=== PATIENT | female | born 1960 | race Caucasian/White ===

== ENCOUNTER 2022-06-24 23:42 | Observation (INO) | payer MEDICAID, SELFPAY ==
[2022-06-24 22:59] VITALS: BP 174/94; PULSE 61; RESP 18; TEMP 36.7; O2SAT 100
[2022-06-24 23:02] VITALS: BMI 27.7
[2022-06-24 23:33] VITALS: BP 184/100
--- NOTE | 2022-06-24 23:41 | HP.PCM.HOS_ITS ---
HPI - General General Date of Admission: 06/24/22 Date of Service: 06/24/22 Chief Complaint: Transfer for ERCP/biliary colic HPI Narrative INEZ SMITH, is a 62 F who presents as a direct admit from [facility]. Patient has no significant past medical history; has not seen a physician since 2006. She presented to [facility] on 06/20/2022 with sudden onset of epigastric and right upper quadrant pain, associated with nausea and intractable vomiting. Pain was worse after eating. CT of the abdomen and pelvis (06/20/22) showed distended gallbladder, small gallstone suspected region with cystic duct, extensive sigmoid diverticulosis, 2.9 cm duodenal diverticulum. MRCP shows choledocholithiasis with stone seen in the distal common bile duct, stone in the cystic duct concerning pericholecystic free fluid and early acute cholecystitis. She was started on IV Zosyn and kept on a clear liquid diet. General surgery was consulted. Patient was recommended for transfer for ERCP/sphincterectomy evaluation and then cholecystectomy. Patient was also noted to have elevated blood pressure readings without a diagnosis of hypertension. Her labs on 06/24/2022 showed sodium is 141, potassium 3.6, chloride is 110, CO2 28, BUN is 8, creatinine 0.84, glucose 96, calcium 8.4, total bilirubin 0.4, total protein 6.64, albumin 2.7, AST 7 ALT 11, ALP 58. At time of being seen in [facility], patient stated that her pain was fairly controlled. She feels much better than before going into [facility]. Denied any nausea or fever or chills. PFSH Medical History Former smoker Allergy/AdvReac Type Severity Reaction Status Date / Time No Known Allergies Allergy Verified 06/25/22 00:06 Family History (Updated 06/25/22 @ 01:[address] Elisha Hannah MD) Mother Diabetes Father CAD (coronary artery disease) Heart disease Surgical History H/O knee surgery Social History (Updated 06/25/22 @ 01:[address] Elisha Hannah MD) household members: none Smoking Status: Former smoker alcohol intake: never substance use type: does not use ROS ROS Narrative Constitutional: Reports: Malaise, Weakness, Fatigue. Denies: Anorexia, Chills, Fever, Night Sweats, Weight Change Eyes: Denies: Blurred vision, Cataracts, Conjunctivae Inflammation, Pain, Redness, Vision Change HEENT: Denies: Difficulty Hearing, Difficulty Swallowing, Head Aches, Hearing Changes, Sinus Congestion, Sinus Drainage Cardiovascular: Denies: Chest Pain, Orthopnea, Palpitations Respiratory: Denies: Cough, Shortness of breath at rest, Sputum production Gastrointestinal: See HPI Genitourinary: Denies: Dysuria Musculoskeletal: Denies: Joint Pain, Joint stiffness, Joint swelling, Joint Tenderness Skin: Denies: Rash, Wounds Neurological: Denies: Numbness, Tingling, Focal weakness Vital Signs Vital Signs Vital Signs: 06/24/22 22:59 06/24/22 23:24 06/24/22 23:33 Temperature 98.1 F Temperature Source Oral Pulse Rate 61 Respiratory Rate 18 Respiratory Effort Normal Non-Labored Respiratory Depth Normal Respiratory Pattern Normal Blood Pressure 174/94 H Blood Pressure [BP] 184/100 H Blood Pressure Mean 120 Blood Pressure Mean [BP] 128 Blood Pressure Source Monitor Blood Pressure Source [BP] Monitor Blood Pressure Position Semi-Fowlers Blood Pressure Position [BP] Semi-Fowlers Blood Pressure Location Left Arm Blood Pressure Location [BP] Right Arm Pulse Ox 100 Oxygen Delivery Method Room Air Room Air Weight Weight: 76.5 kg Body Mass Index (BMI) 27.7 Physical Exam Narrative Physical exam: General: Alert, Oriented x3, Cooperative, not jaundiced, not pale HEENT: Atraumatic Oral: Moist Mucosa Neck: Supple Lungs: Diminished to auscultation Cardiovascular: HS I+II, regular, no murmurs Abdomen: Bowel Sounds Present, Soft, Non Tender Extremities: No edema Skin: No rashes, No breakdown Neurological: Grossly intact Psych/Mental Status: Appropriate Assessment & Plan Assessment/Plan (1) Choledocholithiasis: (2) Cholecystitis: (3) HTN (hypertension): PLAN: Plan 1. Acute choledocholithiasis/acute early cholecystitis CT abdomen/pelvis on 06/20/22 confirms the above LFTs on 06/24/2022 were unremarkable. Admit to MedSurg, pain control as needed, GI consult for evaluation for ERCP General surgery consult for subsequent cholecystectomy Continue on IV Zosyn, clear liquid diet pending further recommendations from GI 2. Elevated blood pressure without previous diagnosis of hypertension Patient was hypertensive the last few days in [facility] Will start on amlodipine 5 mg p.o. daily, continue to monitor vitals 3. DVT PPx- SCDs, in preparation for procedure Total time spent: 75 minutes of which more > 50% was spent in reviewing patient's chart, laboratory investigations, imaging, taking history and physical examining patient and going over plan of care with patient at the bedside. Charges/Coding Visit Charges Inpatient E&M: 03073 Init Hosp L3
[2022-06-25] VITALS (16 sets, daily range): BP systolic 119–164; BP diastolic 70–110; PULSE 50–73; RESP 14–18; TEMP 36.2–37.2; O2SAT 90–100; BMI 27.7
[2022-06-25] MEDS: 0.9% Saline Lock 10 ML Syringe IV ×2 (00:42→05:22)
[2022-06-25] MEDS: Lactated Ringers 1,000 ML 75 ML IV (00:42)
[2022-06-25] MEDS: amLODIPine 5 MG Tablet PO ×2 (01:09→11:01)
--- NOTE | 2022-06-25 06:00 | EKG12_ITS ---
Test Reason : PRE-OP Blood Pressure : / mmHG Vent. Rate : 054 BPM Atrial Rate : 054 BPM P-R Int : 182 ms QRS Dur : 080 ms QT Int : 426 ms P-R-T Axes : 054 001 032 degrees QTc Int : 403 ms Sinus bradycardia with sinus arrhythmia Septal infarct , age undetermined Abnormal ECG No previous ECGs available Confirmed by YVETTE ALVARENGA, AMANDA ([id number]), online content editor JERALD TERAN ([id number]) on 06/26/2022 9:07:34 AM Referred By: Confirmed By:JOYCE CRAWFORD MD
[2022-06-25 07:12] LABS: Absolute Lymphocyte Count 2.41 X10^3/uL (0.83-4.51); Absolute Neutrophil Count 3.4 X10^3/uL (2.0-7.7); Basophil# 0.06 X10^3/uL; Basophil% 0.9 % (0-1); Eosinophil# 0.22 X10^3/uL; Eosinophils% 3.3 % (0-5); Hemoglobin 13.6 g/dL (12.0-15.0); Lymphocyte # 2.41 X10^3/ul (0.83-4.51); Lymphocyte % 35.8 % (19-41); Mean Corpuscular Hgb 30.6 pg (27.0-32.0); Mean Corpuscular Volume 89.9 fL (81-99); Mean Platelet Vol. 9.2 fl (6.2-12.0); Monocyte% 8.9 % (0-10); NRBC Flagged by Analyzer 0 % (0-5); Neutrophil # 3.43 X10^3/uL (2.7-7.7); Platelet Count 272 K/mm3 (150-450); RBC Distribution Width CV 11.9 % (11.6-14.6); RBC Distribution Width SD 38.9 fl (35.1-43.9); Red Blood Count 4.45 M/mm3 (4.2-5.4); White Blood Count 6.7 K/mm3 (4.4-11.0)
[2022-06-25 07:43] LABS: ALB/GLOB Ratio 0.7 RATIO (0.9-2.4); AST(SGOT) 10 U/L (15-37); Alanine Aminotransfer ALT/SGPT 13 U/L (13-56); Albumin, Serum 2.9 g/dL (3.2-5.0); Alkaline Phosphatase 60 U/L (45-117); Anion Gap 8 (5-15); BUN 6 mg/dL (7-18); BUN/Creat Ratio 8.9 RATIO (10-20); Calcium,Total 8.4 mg/dL (8.5-10.1); Chloride 109 mmol/L (98-107); Creatinine, Serum 0.67 mg/dL (0.55-1.02); EST Glomerular Filtration Rate 95 mL/min (>60); Est Glom Filt Rate - Afr Amer 114 mL/min (>60); Estimated Creatinine Clearance 78.34 ml/min; Globulin 3.9 g/dL (2.2-4.2); Glucose 88 mg/dL (74-106); Potassium 3.6 mmol/L (3.5-5.1); Protein, Total 6.8 g/dL (6.4-8.2); Sodium Level 143 mmol/L (136-145)
--- NOTE | 2022-06-25 10:14 | EX.PCM.CON.S ---
Assessment & Plan Assessment/Plan (1) Cholecystitis: PLAN: This is a 62-year-old female, who is otherwise healthy, who presents as a direct admit from outside hospital with diagnoses of cholecystitis and choledocholithiasis. Patient's symptoms are remarkably improved and her labs with CMP today did not show evidence of a cholestatic pattern. Still, her exam is concerning for persistent cholecystitis. After conversation with patient and gastroenterology, I have recommended proceeding with cholecystectomy with intraoperative cholangiogram. It is my hope in performing the operation first that we may be able to obviate the endoscopy procedure if in fact her common duct stone is passed. Procedure was discussed with patient in detail as well as post procedure restrictions. She is understanding of this information and denied any further questions. Recommend: ? Strict n.p.o. now ? Maintenance IV fluids ? Continue empiric IV antibiotics ? Collect consent for procedure later today HPI Consult Data Date of Consult: 06/25/22 HPI Narrative Reason for Consultation: Cholecystitis with choledocholithiasis HPI Narrative: INEZ SMITH, is a 62 F who presents as direct admit from [facility] with diagnoses of cholecystitis and choledocholithiasis. According to patient she started with abdominal discomfort on 06/19/2022. She reports this initially felt like indigestion but was constant and associated with nausea and vomiting. CT imaging on 06/20/2022 diagnosed cholecystitis and subsequently she went through with MRCP which showed a common duct stone. Given this finding she was transferred here for GI evaluation and possible ERCP. States this was her first such episode of the symptoms. He reports that she is otherwise generally healthy and has a remote smoking history with cessation in 2008 (smoked 24 years by this time). She has noted to have some hypertension with her routine vitals, but denies a history of this diagnosis. She also admits, however, that the last time she saw a doctor was 2006. Patient's only prior surgical history was related to an outpatient knee operation. PFSH Medical History Former smoker Allergy/AdvReac Type Severity Reaction Status Date / Time No Known Allergies Allergy Verified 06/25/22 00:06 Family History (Updated 06/25/22 @ 01:[address] Elisha Hannah MD) Mother Diabetes Father CAD (coronary artery disease) Heart disease Surgical History H/O knee surgery Social History (Updated 06/25/22 @ 01:[address] Elisha Hannah MD) household members: none Smoking Status: Former smoker alcohol intake: never substance use type: does not use ROS Constitutional Constitutional: Denies anorexia or fever(s) Gastrointestinal Gastrointestinal: Reports abdominal pain, nausea and vomiting Integumentary Integumentary: Denies jaundice or rash Physical Exam Const alert and oriented x3 General Appearance: cooperative HEENT normocephalic Eyes conjunctivae normal Eyes Narrative: no icterus Resp normal respiratory effort Effort and Inspection: able to speak in complete sentences GI GI Narrative: Overweight, nondistended, no scars. Soft and tender to palpation in the right upper quadrant with positive Monreal sign. Lab / Micro Data Result Diagrams: 06/25/22 06:33 06/25/22 06:33 Labs: Laboratory Results - last 24 hr 06/25/22 06:33: WBC 6.7, RBC 4.45, Hgb 13.6, Hct 40.0, MCV 89.9, MCH 30.6, MCHC 34.0, RDW Std Deviation 38.9, RDW Coeff of Joleen 11.9, Plt Count 272, MPV 9.2, Immature Gran % (Auto) 0.100, Neut % (Auto) 51.0, Lymph % (Auto) 35.8, [place] % (Auto) 8.9, Eos % (Auto) 3.3, Baso % (Auto) 0.9, Absolute Neuts (auto) 3.4, Absolute Lymphs (auto) 2.41, Nucleated RBC % 0 06/25/22 06:33: Sodium 143, Potassium 3.6, Chloride 109 H, Carbon Dioxide 26.0, Anion Gap 8, BUN 6 L, Creatinine 0.67, Estim Creat Clear Calc 78.34, Est GFR (MDRD) Af Amer 114, Est GFR (MDRD) Non-Af 95, BUN/Creatinine Ratio 8.9 L, Glucose 88, Calcium 8.4 L, Total Bilirubin 0.40, AST 10 L, ALT 13, Alkaline Phosphatase 60, Total Protein 6.8, Albumin 2.9 L, Globulin 3.9, Albumin/Globulin Ratio 0.7 L Charges/Coding Visit Charges Inpatient E&M: 55457 Init Hosp L2
[2022-06-25] MEDS: cloNIDine HCl 0.1 MG Tablet 0.2 MG PO (11:01)
--- NOTE | 2022-06-25 15:10 | CASEMGMT ---
BRIANNE HARPER DC Planning Assessment: Face to Face with patient for initial transition planning/care coordination assessment. BRIANNE HARPER introduced self and role at [facility], pt voices understanding. Pt alert and oriented x4, and agreeable to participating in assessment. Care providers, pharmacy, and demographics verified. Admitting dx: cholecystitis with choledocholelithiasis PCP: None, pt states she has not seen a dr since 2006 and denies any chronic conditions requiring management. Specialists: None Preferred Pharmacy: [facility] for this discharge Insurance: [facility] CP Prescription Benefit: yes Living Will/HPOA: None LNOK: mother Jazmine Beckett Living Arrangements: Pt lives alone in a single story home with 2 steps to the deck and one step to enter the home. 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 List of PCP's from [facility] provided to patient. Pt states she will establish with a PCP upon returning home. Will continue to monitor and assist with DC needs as identified. Rafy Lea RN CM
--- NOTE | 2022-06-25 15:17 | PN.HOSP_ITS ---
Subjective Subjective Patient was seen and examined today, her blood pressure is running a little high today, she states she never goes to the doctors for checkups. I have administered clonidine this morning in addition to her Norvasc that she had scheduled. Patient does not complain of any chest pain or shortness of breath. Objective Data Objective Data Vital Signs: Vital Signs Temp Pulse Resp BP Pulse Ox O2 Del Method 98 F 55 L 16 119/73 95 Room Air 06/25/22 13:49 06/25/22 13:49 06/25/22 13:49 06/25/22 13:49 06/25/22 13:49 06/25/22 13:49 Oxygen Delivery Method Room Air Weight: 76.4 kg Body Mass Index (BMI) 27.7 Intake & Output: Intake and Output for Last 24 Hours 06/23/22 06/24/22 06/25/22 23:59 23:59 23:59 Intake Total 346.25 / 346.25 Output Total 800 / 800 Balance -453.75 / -453.75 Lab / Micro Data Result Diagrams: 06/25/22 06:33 06/25/22 06:33 Labs: Laboratory Results - last 24 hr 06/25/22 06:33: WBC 6.7, RBC 4.45, Hgb 13.6, Hct 40.0, MCV 89.9, MCH 30.6, MCHC 34.0, RDW Std Deviation 38.9, RDW Coeff of Joleen 11.9, Plt Count 272, MPV 9.2, Immature Gran % (Auto) 0.100, Neut % (Auto) 51.0, Lymph % (Auto) 35.8, [place] % (Auto) 8.9, Eos % (Auto) 3.3, Baso % (Auto) 0.9, Absolute Neuts (auto) 3.4, Absolute Lymphs (auto) 2.41, Nucleated RBC % 0 06/25/22 06:33: Sodium 143, Potassium 3.6, Chloride 109 H, Carbon Dioxide 26.0, Anion Gap 8, BUN 6 L, Creatinine 0.67, Estim Creat Clear Calc 78.34, Est GFR (MDRD) Af Amer 114, Est GFR (MDRD) Non-Af 95, BUN/Creatinine Ratio 8.9 L, Glucose 88, Calcium 8.4 L, Total Bilirubin 0.40, AST 10 L, ALT 13, Alkaline Phosphatase 60, Total Protein 6.8, Albumin 2.9 L, Globulin 3.9, Albumin/Globulin Ratio 0.7 L Physical Exam Const alert, oriented x3, no apparent distress, average body habitus and healthy appearing General Appearance: cooperative, well kempt and well developed Orientation / Consciousness: awake, oriented to person, oriented to place and oriented to time HEENT normocephalic, head/scalp atraumatic and moist oral mucous membranes Eyes PERRL, EOMs intact bilaterally and conjunctivae normal Neck supple, no JVD, thyroid normal and no carotid bruits General: trachea midline Resp normal respiratory effort, no retractions, no use of accessory muscles and clear to auscultation bilaterally Auscultation: Negative for rales, rhonchi or wheezes Cardio regular rate, regular rhythm, S1 normal heart sound, S2 normal heart sound, no murmurs, no rub and no gallops GI normal to inspection, nondistended, normoactive bowel sounds, soft to palpation, non-tender and non-distended Extremity no clubbing, cyanosis or edema Skin no rashes or lesions noted General Skin Exam: no breakdown Neuro oriented x3, CN's II-XII intact bilaterally, moves all extremities, no focal motor deficits and no sensory deficits noted Sensorium / Orientation: awake, alert, oriented to person, oriented to place and oriented to time Speech: speech normal Psych affect normal Assessment & Plan Assessment/Plan (1) HTN (hypertension): PLAN: Plan 1. Essential hypertension-patient's blood pressure appears controlled at this time, she appears stable for surgery #2 acute cholecystitis-patient will have surgery performed today. She remains on IV antibiotics Total clinical time spent by myself addressing patient's medical problems, r eviewing all her data, and collaborating with her care team: 35 min Charges/Coding Visit Charges Inpatient E&M: 46023 Subs Hosp L2
--- NOTE | 2022-06-25 16:42 | CON.PCM.GI_ITS ---
HPI Consult Data Date of Consult: 06/25/22 HPI Narrative Reason for Consultation: choledocholithiasis HPI Narrative: INEZ SMITH, is a 62 F who presents as a direct admit from [facility].? Patient has no significant past medical history; has not seen a physician since 2006.? She presented to [facility] on 06/20/2022 with sudden onset of epigastric and right upper quadrant pain, associated with nausea and intractable vomiting.? Pain was worse after eating.CT of the abdomen and pelvis (06/20/22) showed distended gallbladder, small gallstone suspected region with cystic duct, extensive sigmoid diverticulosis, 2.9 cm duodenal diverticulum.? MRCP shows choledocholithiasis with stone seen in the distal common bile duct, stone in the cystic duct concerning pericholecystic free fluid and early acute cholecystitis. She was started on IV Zosyn and kept on a clear liquid diet.? General surgery was consulted.? Patient was recommended for transfer for ERCP/sphincterectomy evaluation and then cholecystectomy.? Patient was also noted to have elevated blood pressure readings without a diagnosis of hypertension. Her labs on 06/24/2022 showed sodium is 141, potassium 3.6, chloride is 110, CO2 28, BUN is 8, creatinine 0.84, glucose 96, calcium 8.4, total bilirubin 0.4, total protein 6.64, albumin 2.7, AST 7 ALT 11, ALP 58. At time of being seen in [facility], patient stated that her pain was fairly controlled.? She has been seen by surgery here and the plan of action is for cholecystectomy with intraoperative cholangiogram because her LFTs have improved and her pain is improved.? PFSH Medical History Former smoker Allergy/AdvReac Type Severity Reaction Status Date / Time No Known Allergies Allergy Verified 06/25/22 00:06 Family History (Updated 06/25/22 @ 01:[address] Elisha Hannah MD) Mother Diabetes Father CAD (coronary artery disease) Heart disease Surgical History H/O knee surgery Social History (Updated 06/25/22 @ 01:[address] Elisha Hannah MD) household members: none Smoking Status: Former smoker alcohol intake: never substance use type: does not use ROS Constitutional Constitutional: Denies anorexia or fever(s) Gastrointestinal Gastrointestinal: Reports abdominal pain, nausea and vomiting Integumentary Integumentary: Denies jaundice or rash Physical Exam Const alert, oriented x3, no apparent distress, average body habitus and healthy appearing General Appearance: cooperative, well kempt and well developed Orientation / Consciousness: awake, oriented to person, oriented to place and oriented to time HEENT normocephalic, head/scalp atraumatic and moist oral mucous membranes Eyes PERRL, EOMs intact bilaterally and conjunctivae normal Neck supple, no JVD, thyroid normal and no carotid bruits General: trachea midline Resp normal respiratory effort, no retractions, no use of accessory muscles and clear to auscultation bilaterally Auscultation: Negative for rales, rhonchi or wheezes Cardio regular rate, regular rhythm, S1 normal heart sound, S2 normal heart sound, no murmurs, no rub and no gallops GI normal to inspection, nondistended, normoactive bowel sounds, soft to palpation, non-tender and non-distended Extremity no clubbing, cyanosis or edema Skin no rashes or lesions noted General Skin Exam: no breakdown Neuro oriented x3, CN's II-XII intact bilaterally, moves all extremities, no focal motor deficits and no sensory deficits noted Sensorium / Orientation: awake, alert, oriented to person, oriented to place and oriented to time Speech: speech normal Psych affect normal Lab / Micro Data Result Diagrams: 06/25/22 06:33 06/25/22 06:33 Labs: Laboratory Results - last 24 hr 06/25/22 06:33: WBC 6.7, RBC 4.45, Hgb 13.6, Hct 40.0, MCV 89.9, MCH 30.6, MCHC 34.0, RDW Std Deviation 38.9, RDW Coeff of Joleen 11.9, Plt Count 272, MPV 9.2, Immature Gran % (Auto) 0.100, Neut % (Auto) 51.0, Lymph % (Auto) 35.8, [place] % (Auto) 8.9, Eos % (Auto) 3.3, Baso % (Auto) 0.9, Absolute Neuts (auto) 3.4, Absolute Lymphs (auto) 2.41, Nucleated RBC % 0 06/25/22 06:33: Sodium 143, Potassium 3.6, Chloride 109 H, Carbon Dioxide 26.0, Anion Gap 8, BUN 6 L, Creatinine 0.67, Estim Creat Clear Calc 78.34, Est GFR (MDRD) Af Amer 114, Est GFR (MDRD) Non-Af 95, BUN/Creatinine Ratio 8.9 L, Glucose 88, Calcium 8.4 L, Total Bilirubin 0.40, AST 10 L, ALT 13, Alkaline Phosphatase 60, Total Protein 6.8, Albumin 2.9 L, Globulin 3.9, Albumin/Globulin Ratio 0.7 L Assessment & Plan Assessment/Plan (1) Choledocholithiasis: PLAN: Patient is doing well at this time. We will see what happens when she undergoes cholecystectomy with intraoperative cholangiogram. Hopefully she will not need to have another procedure to remove distal common bile duct stones. Continue antibiotic therapy. I will continue to follow. Charges/Coding Visit Charges Inpatient E&M: 67190 Init Hosp L2
--- NOTE | 2022-06-25 17:00 | GALL_PTH ---
PATIENT: INEZ SMITH LOC: MS3 U#:[id number] AGE/SX: 62/F ROOM: MO317 RE06/24/[address]: Dr. Rashard Butler, : 1960 BED: 1 DIS: 06/26/2022 SPEC #: [id number] RECD: 06/26/22 10:57 STATUS: ANGEL HAM #: [id number] KEITH: 06/25/22 17:[address]: Bam Fernando DEPT: SURGICAL PATHOLOGY RECD BY: Juma Tran ENTERED: 06/26/22 13:21 SP TYPE: GALLBLADDAbhishek ZARAGOZA DR: MD Dr. Rashard Cabrera, DO No Primary Care Phys Tissues: A - Gallbladder, NOS B - Liver, NOS Procedures: PAS with Diastase (control) Trichrome (control) Special Stain Group II PAS Stain (control) Surgery Specimen Level III Surgery Specimen Level V Retic (control) Iron Stain (control) HEADER OPERATION: Laparoscopic cholecystectomy with IOC PRE-OP DIAGNOSIS: Cholecystitis TISSUE SUBMITTED: A ? Gallbladder, B ? Segment for liver biopsy MICROSCOPIC DIAGNOSIS A. Gallbladder, cholecystectomy: Chronic cholecystitis. B. Liver, biopsy: Fragment of benign hepatic parenchyma. No evidence of inflammation or cirrhosis. See comment. AM:maxine 06/29/2022 COMMENT Trichrome stain does not reveal fibrosis. PASD and PAS stains do not reveal accumulation of abnormal proteins. Reticulin stain reveals normal hepatic parenchymal architecture. Iron stain does not reveal intraparenchymal deposition of iron. All matched controls are appropriate. There is no evidence of malignancy. Case has been reviewed in consultation with Dr. Negro who concurs with the above diagnosis. IDC:SJ MICROSCOPIC DESCRIPTION Sections show liver tissue with thermal artifact throughout. GROSS DESCRIPTION A - Received is one container labeled with the patient's name and designated gallbladder. The specimen consists of a gallbladder measuring 6 cm in length and 3 cm in diameter. The external surface is pink-marshall, smooth and glistening for the most part. Focally it is granular, hemorrhagic and contains cautery artifact. The gallbladder is collapsed and does not contain any bile. No stones are identified in the container or in the gallbladder. The gallbladder wall measures up to 0.3 cm in thickness. Rehab Aide sections from the gallbladder and the cystic duct are submitted in one cassette. B - Received in fixative is one container labeled with the patient's name and designated segment for liver biopsy. The specimen consists of an irregular piece of marshall-brown soft tissue measuring 0.5 x 0.5 x 0.2 cm. The entire specimen is submitted in one cassette. / SJ:rg 06/26/2022 TC:3 CPT: 18351, 77487, 79053 x5
--- NOTE | 2022-06-25 17:31 | NURSING ---
pt taken to surgery
[2022-06-25] MEDS: Lactated Ringers 1,000 ML 15 ML IV (17:48)
--- NOTE | 2022-06-25 19:30 | RAD_ITS ---
STUDY: INTRAOPERATIVE CHOLANGIOGRAM. REASON FOR EXAM: Female, 62 years old. LAP JIMMIE FLUOROSCOPY TIME (if supplied): ( 35 seconds ) minutes/seconds. A cine loop of 194 images were submitted. TECHNIQUE: Intraoperative cholangiography was performed by the surgeon. Imaging was submitted. COMPARISON: None. FINDINGS: The common bile duct is unremarkable. No intraluminal filling defect is seen. There is free flow of contrast into the duodenum. RAD/Cholangiogram/ O R,Initial IMPRESSION: Unremarkable intraoperative glandular. Electronically Signed: Jj Rodriguez MD at 13:01 EST ,
[2022-06-25] MEDS: Bupivacaine 0.5% PF 10 ML VIAL (20:37)
[2022-06-25] MEDS: 0.9% Normal Saline (Pres. free 10 ML Vial (20:37)
--- NOTE | 2022-06-25 20:41 | OP.PCM_ITS ---
Report of Operation Date of Procedure: 06/25/22 Pre-Operative Diagnosis: Cholecystitis with choledocholithiasis seen on MRCP Post-Operative Diagnosis: 1. Cholecystitis 2. No demonstrated evidence of choledocholithiasis on intraoperative cholangiogram 3. Firm white nodule of liver segment #4 Surgery/Procedure Performed:: 1. Laparoscopic cholecystectomy with intraoperative cholangiogram 2. Excisional liver biopsy Description of Surgical Findings:: ? Numerous adhesions between the omentum and the gallbladder ? Whitish nodule (estimated 5 mm in diameter) of segment 4 liver ? Cholangiogram showing a long cystic duct flowing into a common bile duct with free flow of contrast into the duodenum without filling defect. There is also retrograde filling of the common hepatic duct Surgeon: Bam Fernando kitchen steward/stewardess: Elen Ash Type of Anesthesia: General/Supplemental Anesthesiologist: Helene Bey Specimen's removed: 1. Gallbladder 2. Excisional biopsy of liver segment 4 nodule Estimated Blood Loss (mL): 50 Description of Procedure: After proper identification in the preoperative holding area the patient was brought to the operating room where positioned supine on the operating room table. Preoperatively SCDs were placed (antibiotics were administered continuously on the floor). General anesthesia was then induced. Patient's abdomen was prepped and draped in usual sterile fashion. A formal timeout was conducted to confirm both patient and the procedure. Procedure was begun with a supraumbilical incision which was extended deeply down to the level of the fascia. The fascia was elevated and incised, as well as the peritoneum. A finger sweep was performed to ensure there were no underlying adhesions and a 12 mm balloon trocar was inserted. Pneumoperitoneum was established at 15 mmHg. 3 additional trocars were placed in the epigastrium and in the right upper quadrant (3 x 5 mm). Inspection of the peritoneum revealed no inadvertent injury to the viscera below. The gallbladder was visualized with moderate degree of inflammation and partly shrouded with adhesions from the omentum. Additionally I noted a small white nodule on the medial aspect of the liver from the gallbladder fossa. The gallbladder fundus was then grasped and elevated cephalad. Then, using careful blunt dissection and electrocautery the omentum was taken down off the gallbladder surface. With additional dissection the peritoneum was opened and the structures of the hepatocystic triangle were delineated. Once the critical view of safety was obtained, the cystic duct was singly clipped distally and using an Huizar Domenico clamp, a cholangiocatheter was fed into the proximal segment of the cystic duct and clamped into place. Under fluoroscopy a cholangiogram was then obtained showing a long cystic duct flowing into a common bile duct with unobstructed antegrade flow of contrast into the duodenum. There was also retrograde flow through the common hepatic duct into the right and left hepatic ducts. With this normal result, and the cholangiocatheter and clamp were withdrawn and the proximal cystic duct was triply clipped and sharply divided. The same process was used for the cystic artery. The gallbladder was then removed from the gallbladder fossa with the use of electrocautery. As I was approaching the gallbladder fossa encountered a secondary cystic artery feeding a body of the gallbladder which was clipped, more circumferentially dissected and clipped again to secure hemostasis for it was divided distally. Additional selective electrocautery was used to obtain hemostasis in the gallbladder fossa. The gallbladder was stowed in Morison's pouch and I performed a excisional biopsy of the liver nodule by applying energy to laparoscopic abel and incising the liver parenchyma as cautery was applied for hemostasis circumferentially about the nodule until it was amputated free. It was removed from the peritoneum and passed off the operative field for pathologic processing via permanent section. The gallbladder was placed in an Endo Catch bag and removed from the peritoneum. Morison's pouch was irrigated and the effluent was suctioned free of the peritoneum. Hemostasis was again confirmed. Pneumoperitoneum was evacuated and the fascia of the 12 mm port sites was closed with #1Vicryl in a [id number] fashion. The skin of each port site was then closed in subcuticular fashion us ing 4-0 Monocryl. Steri-Strips and bandages were applied as dressings. Patient tolerated the procedure well without any apparent complications. On emergence from their anesthetic the patient was taken to PACU for ongoing recovery. Complications None Admit VTE Documentation VTE Mechan Device Prophylaxis: SCD's
[2022-06-26 00:50] VITALS: BP 123/73; PULSE 55; RESP 16; TEMP 36.3; O2SAT 97
[2022-06-26 03:00] VITALS: BP 109/64; PULSE 58; RESP 16; TEMP 36.3; O2SAT 97
[2022-06-26] MEDS: oxyCODONE 5 MG Tablet PO ×2 (05:26→11:42)
[2022-06-26 06:45] LABS: Absolute Lymphocyte Count 0.96 X10^3/uL (0.83-4.51); Absolute Neutrophil Count 8.6 X10^3/uL (2.0-7.7); Basophil# 0.03 X10^3/uL; Basophil% 0.3 % (0-1); Hematocrit 38.6 % (37-47); Hemoglobin 13.4 g/dL (12.0-15.0); Lymphocyte # 0.96 X10^3/ul (0.83-4.51); Lymphocyte % 9.8 % (19-41); Mean Corp Hgb Conc 34.7 g/dL (32-36); Mean Corpuscular Hgb 30.9 pg (27.0-32.0); Mean Corpuscular Volume 88.9 fL (81-99); Mean Platelet Vol. 9.4 fl (6.2-12.0); Monocyte# 0.16 X10^3/uL; Monocyte% 1.6 % (0-10); NRBC Flagged by Analyzer 0 % (0-5); Neutrophil # 8.57 X10^3/uL (2.7-7.7); Neutrophil % 87.9 % (47-70); Platelet Count 240 K/mm3 (150-450); RBC Distribution Width CV 11.7 % (11.6-14.6); RBC Distribution Width SD 37.4 fl (35.1-43.9); Red Blood Count 4.34 M/mm3 (4.2-5.4); White Blood Count 9.8 K/mm3 (4.4-11.0)
[2022-06-26 07:13] VITALS: O2SAT 96
[2022-06-26 07:17] LABS: ALB/GLOB Ratio 0.7 RATIO (0.9-2.4); AST(SGOT) 34 U/L (15-37); Alanine Aminotransfer ALT/SGPT 31 U/L (13-56); Albumin, Serum 2.7 g/dL (3.2-5.0); Alkaline Phosphatase 62 U/L (45-117); Anion Gap 10 (5-15); BUN 14 mg/dL (7-18); BUN/Creat Ratio 17.5 RATIO (10-20); Calcium,Total 8.4 mg/dL (8.5-10.1); Chloride 106 mmol/L (98-107); EST Glomerular Filtration Rate 77 mL/min (>60); Est Glom Filt Rate - Afr Amer 94 mL/min (>60); Estimated Creatinine Clearance 65.61 ml/min; Globulin 3.9 g/dL (2.2-4.2); Glucose 176 mg/dL (74-106); Potassium 3.9 mmol/L (3.5-5.1); Protein, Total 6.6 g/dL (6.4-8.2); Sodium Level 138 mmol/L (136-145)
[2022-06-26 08:00] VITALS: BP 123/88; PULSE 62; RESP 16; TEMP 36.7; O2SAT 94
[2022-06-26] MEDS: amLODIPine 5 MG Tablet PO (08:26)
--- NOTE | 2022-06-26 09:00 | PN.SURG_ITS ---
Subjective Subjective Patient seen and examined during AM rounds. She is found sitting up in bed and coffee. She reports that she is feeling better. She claims just mild tenderness at her abdominal wall. She states that she is eager for more regular diet. She wishes to know when she may be able to go home. Objective Data Objective Data Vital Signs: Vital Signs Temp Pulse Resp BP Pulse Ox O2 Del Method O2 Flow Rate 98.1 F 62 16 123/88 H 94 Room Air 2 06/26/22 08:00 06/26/22 08:00 06/26/22 08:00 06/26/22 08:00 06/26/22 08:00 06/26/22 08:00 06/26/22 03:00 Oxygen Flow Rate (L/min) 2 Oxygen Delivery Method Room Air Weight: 170 lb 13.732 oz Body Mass Index (BMI) 27.7 Intake & Output: Intake and Output for Last 24 Hours 06/24/22 06/25/22 06/26/22 23:59 23:59 23:59 Intake Total 2646.25 / 2646.25 550 / 550 Output Total 800 / 800 500 / 500 Balance 1846.25 / 1846.25 50 / 50 Lab / Micro Data Result Diagrams: 06/26/22 06:20 06/26/22 06:20 Labs: Laboratory Results - last 24 hr 06/26/22 06:20: WBC 9.8, RBC 4.34, Hgb 13.4, Hct 38.6, MCV 88.9, MCH 30.9, MCHC 34.7, RDW Std Deviation 37.4, RDW Coeff of Joleen 11.7, Plt Count 240, MPV 9.4, Immature Gran % (Auto) 0.400, Neut % (Auto) 87.9 H, Lymph % (Auto) 9.8 L, [place] % (Auto) 1.6, Eos % (Auto) 0.0, Baso % (Auto) 0.3, Absolute Neuts (auto) 8.6 H, Absolute Lymphs (auto) 0.96, Nucleated RBC % 0 06/26/22 06:20: Sodium 138, Potassium 3.9, Chloride 106, Carbon Dioxide 22.0, Anion Gap 10, BUN 14, Creatinine 0.80, Estim Creat Clear Calc 65.61, Est GFR (MDRD) Af Amer 94, Est GFR (MDRD) Non-Af 77, BUN/Creatinine Ratio 17.5, Glucose 176 H, Calcium 8.4 L, Total Bilirubin 0.50, AST 34, ALT 31, Alkaline Phosphatase 62, Total Protein 6.6, Albumin 2.7 L, Globulin 3.9, Albumin/Globulin Ratio 0.7 L Physical Exam Const oriented x3 and no apparent distress GI GI Narrative: Nondistended, operative dressings intact without strikethrough. Abdomen soft and appropriately tender to palpation about port sites. Assessment & Plan Assessment/Plan (1) Cholecystitis: PLAN: This is a 62-year-old female, who is otherwise healthy, who presents as a direct admit from outside hospital with diagnoses of cholecystitis and choledocholithiasis. She was taken to the OR yesterday for laparoscopic cholecystectomy with intraoperative cholangiogram. She was found to have clear evidence of cholecystitis, but cholangiogram was clear?not demonstrating any choledocholithiasis. Intraoperatively I did note a small nodule in segment 4 of the liver so this was excised for pathology as well. This morning patient is doing quite well in her recovery and having minimal discomfort. She is eager for regular diet and discharge. I have transitioned her diet and notified hospitalist service that if she does well with this transition she is good for discharge from a surgical standpoint. I have requested outpatient follow-up in 7 to 10 days and discussed with her postoperative instructions. Charges/Coding Visit Charges Inpatient E&M: 38641 Subs Hosp L2
--- NOTE | 2022-06-26 10:57 | DCINST_ITS ---
Discharge Instructions Diet Discharge Diet: No restrictions Activity Discharge Activity: Return to Normal Activity Weight Bearing Status: Full weight bearing Follow Up Care Test Results: Test results from this visit will be discussed in further detail at your follow- up appointment, if applicable. Discharge Plan Admission Admit Date/Time: 06/24/22 23:42 Primary Reason for Your Visit: acute cholecystitis Attending Provider: Rashard Butler Primary Care Provider: Care Physician,No Primary Consulting Providers: Bam Fernando ; Elisha aHnnah Instructions Additional Instructions / Restrictions: See a primary care physician in 2 to 3 weeks Discharge Orders/Prescriptions Prescriptions: New amlodipine 5 mg Tablet 5 mg PO DAILY Qty: 30 0RF oxycodone 5 mg Tablet 5 - 10 mg PO Q6H PRN PRN (Reason: Pain Score 6-10) 5 Days Qty: 25 0RF Referrals / Follow Up: Bam Fernando MD [Med Staff - Active Staff] - In 1 Week Care Physician,No Primary [Primary Care Provider] - Disposition Disposition (needs filled in before D/C Order can be placed): Home, Self Care
--- NOTE | 2022-06-26 14:25 | PCM.DC.SUM ---
Providers Date of Admission: 06/24/22 Date of Discharge: 06/26/22 Primary Care Physician: Evelin Primary Care Phys Consultations 06/24/22 23:45 Consult: Gastroenterology Routine Consulting Provider: Cindy Berman Reason for Consult: Biliary colic EMERGENT Consult: No Notified: Yes Date Notified: 06/25/22 Time Notified: 05:55 Method of Notification: Text 06/25/22 00:49 Consult: General Surgery Routine Consulting Provider: Bam Fernando Reason for Consult: Cholecystitis EMERGENT Consult: No Notified: Yes Date Notified: 06/25/22 Time Notified: 06:24 Method of Notification: Text Reason For Visit: BILIARY COLIC Diagnosis Discharge Diagnosis (1) Cholecystitis: Status: Acute Code(s): K81.9 - Cholecystitis, unspecified Plan 1. Essential hypertension-new diagnosis--patient's blood pressure appears controlled at this time, she appears stable for surgery #2 acute cholecystitis-patient will have surgery performed today. She remains on IV antibiotics Choledocholithiasis was ruled out Total clinical time spent by myself addressing patient's medical problems, reviewing all her data, and collaborating with her care team: 35 min Medications at Discharge Home Medications amlodipine 5 mg tablet 5 mg PO DAILY #30 tabs 06/26/22 oxycodone 5 mg tablet 5 - 10 mg PO Q6H PRN PRN Pain Score 6-10 5 days #25 tabs 06/26/22 Hospital Course Operations - (Laparoscopic cholecystectomy with intraoperative cholangiogram, excisional liver biopsy) Procedures None Summary of Care Provided Minutes Spent on Discharge: 31 Hospital Course: 62-year-old white female was admitted directly to [place] [address] from [facility] due to right upper quadrant abdominal pain, CT of the abdomen pelvis performed on 06/20/2022 showed a distended gallbladder, small gallstone suspected near the cystic duct, MRCP showed choledocholithiasis with stone seen in the distal common bile duct and a stone in the cystic duct with findings concerning for early acute cholecystitis. Patient was started on IV Zosyn kept on a clear liquid diet, she was seen by general surgery and it was recommended the patient be transferred here for ERCP and sphincterotomy. Patient was also noted to have elevated blood pressure, she had not seen a physician in many years. Patient was admitted to [place] [address], seen by general surgery, she was seen in consultation by gastroenterology, and placed on IV antibiotics and oral blood pressure medications. The plan for the patient would be an interoperative cholangiogram with a cholecystectomy, this was carried out on 06/25/2022, there were no stones present in the common bile duct, liver had an abnormal appearance however and biopsy was taken of the liver. Patient did well after surgery there were no complications, blood pressure was controlled with oral blood pressure medications. On 06/26/2022, patient was seen and examined: On examination she appeared in good health and spirits, she does not appear to be in any distress. Vital signs as documented. Skin warm and dry and without overt rashes. Neck without JVD, thyroid appears normal, trachea is midline, neck is supple. Lungs clear, normal air movement was noted. Heart exam notable for regular rhythm, normal sounds and absence of murmurs, rubs or gallops. Abdomen unremarkable and without evidence of organomegaly, masses, or abdominal aortic enlargement, bowel sounds are present in all 4 quadrants, no abdominal tenderness was noted. Extremities nonedematous, no cyanosis was noted, no clubbing was noted. Neuro: Cranial nerves II through XII are grossly intact, no focal motor deficits were noted, sensation to light touch and pinprick is intact, motor exam 5/5 throughout. Psych: Patient is alert and oriented x3, she does not appear anxious or depressed, she does not appear agitated. Patient was felt to be stable for discharge home on 06/26/2022 in stable condition. Weight / BMI Weight Weight: 77.5 kg Body Mass Index (BMI) 27.7 ABG / Lab / Microbiology Data Result Diagrams: 06/26/22 06:20 06/26/22 06:20 Laboratory: Laboratory Results - last 24 hr 06/26/22 06:20: WBC 9.8, RBC 4.34, Hgb 13.4, Hct 38.6, MCV 88.9, MCH 30.9, MCHC 34.7, RDW Std Deviation 37.4, RDW Coeff of Joleen 11.7, Plt Count 240, MPV 9.4, Immature Gran % (Auto) 0.400, Neut % (Auto) 87.9 H, Lymph % (Auto) 9.8 L, [place] % (Auto) 1.6, Eos % (Auto) 0.0, Baso % (Auto) 0.3, Absolute Neuts (auto) 8.6 H, Absolute Lymphs (auto) 0.96, Nucleated RBC % 0 06/26/22 06:20: Sodium 138, Potassium 3.9, Chloride 106, Carbon Dioxide 22.0, Anion Gap 10, BUN 14, Creatinine 0.80, Estim Creat Clear Calc 65.61, Est GFR (MDRD) Af Amer 94, Est GFR (MDRD) Non-Af 77, BUN/Creatinine Ratio 17.5, Glucose 176 H, Calcium 8.4 L, Total Bilirubin 0.50, AST 34, ALT 31, Alkaline Phosphatase 62, Total Protein 6.6, Albumin 2.7 L, Globulin 3.9, Albumin/Globulin Ratio 0.7 L Radiography Diagnostic Testing: Radiology Impression Cholangiogram 06/25/22 19:30 IMPRESSION: Unremarkable intraoperative glandular. Electronically Signed: Jj Rodriguez MD at 13:01 EST Reading Location ID and State: [address] [place] [address] , Service support , D/C Instructions Discharge Diet: No restrictions Weight Bearing Status: Full weight bearing Meaningful Use Info Meaningful Use Diagnoses (Choose all that apply): None applicable Discharge Plan Admission Admit Date/Time: 06/24/22 23:42 Primary Reason for Your Visit: acute cholecystitis Attending Provider: Rashard Butler Primary Care Provider: Care Physician,No Primary Consulting Providers: Bam Fernando ; Elisha Hannah Instructions Additional Instructions / Restrictions: See a primary care physician in 2 to 3 weeks Discharge Orders/Prescriptions Prescriptions: New amlodipine 5 mg Tablet 5 mg PO DAILY Qty: 30 0RF oxycodone 5 mg Tablet 5 - 10 mg PO Q6H PRN PRN (Reason: Pain Score 6-10) 5 Days Qty: 25 0RF Referrals / Follow Up: Bam Fernando MD [Med Staff - Active Staff] - In 1 Week Care Physician,No Primary [Primary Care Provider] - Disposition Disposition (needs filled in before D/C Order can be placed): Home, Self Care Charges/Coding Visit Charges Inpatient E&M: 79919 Disch Hosp >30min
--- NOTE | 2022-06-26 15:26 | PHA.DC.MC ---
Pharmacy Service has performed discharge medication reconciliation and counseling for this patient. 1. AMLODIPINE 5MG PO DAILY 2. OXYCODONE 5-10MG PO Q6H PRN PAIN 6-10 The patient's discharge medication list was reviewed for discrepancies and discrepancies were resolved. Home Medications amlodipine 5 mg tablet 5 mg PO DAILY #30 tabs 06/26/22 oxycodone 5 mg tablet 5 - 10 mg PO Q6H PRN PRN Pain Score 6-10 5 days #25 tabs 06/26/22 The patient was counseled on the following discharge medications and changes in medications for homegoing were reviewed. The Reason for Use, instructions for use, and potential side effects were reviewed for all new medications. The patient's questions regarding all of their medications were answered. The patient was able to verbally demonstrate an understanding of their discharge medications. Patient counseled by pharmacy care coordinatorMinnie.
[2022-06-26 15:34] VITALS: BP 115/77; PULSE 69; RESP 16; TEMP 36.7; O2SAT 96
== END 2022-06-26 16:50 | disposition home or self-care (01) | DRG 263 ==
PROVIDERS: Surgery; Admitting Provider Internal Medicine; Visit Provider Internal Medicine
PROC: (CPT 47610; principal; 2022-06-25 16:40)
DX: K81.2 Acute cholecystitis with chronic cholecystitis (principal); D13.4 Benign neoplasm of liver; K76.89 Other specified diseases of liver; I10 Essential (primary) hypertension; Z79.899 Other long term (current) drug therapy; Z87.891 Personal history of nicotine dependence
CPT/HCPCS: 47563; 00790; 47379; G0379; 36415; 74300; 76000; 80053; 85025; 88304; 88307; 88313; 93005; 96361; 96365; 96366; 99221; J7050; J7120; A4216; G0378; J2405; J3490

== ENCOUNTER 2025-02-20 04:21 | Inpatient (IN) | payer MEDICARE, MEDICAID, SELFPAY ==
[2025-02-20] VITALS (14 sets, daily range): BP systolic 114–176; BP diastolic 75–117; PULSE 62–100; RESP 14–18; TEMP 36.2–37.7; O2SAT 89–97; BMI 29.0
--- NOTE | 2025-02-20 04:14 | PCM.HP.STD ---
HPI - General General Date of Admission: 02/20/25 Date of Service: 02/20/25 Chief Complaint: Abdominal pain HPI Narrative INEZ SMITH, is a 65 F who presents to our hospital from [facility] in [facility] with chief complaint of abdominal pain. Patient has had 10 days of worsening pain in her right upper quadrant of her abdomen. She has a history of cholecystectomy and hypertension. Patient has complained of nausea and vomiting with no fever or chills, no chest pain or shortness of breath. CT scan reveals a 3 to 4 mm calculus in the distal common bile duct. ER physician consulted with Dr. Almanza at our facility who accepted transfer and care to do an ERCP. Laboratory studies showed white blood cell count of 12,000 with a total bilirubin of 1.5, ALT 546, AST 722 with a lipase of 36, lactate 1.5. Patient experiencing significant pain upon arrival and Dilaudid was ordered verbally with nurse in the room. Patient will be made n.p.o. additional labs will be ordered and GI consult obtained. PFS Medical History Former smoker Home Medications ?Medication ?Instructions ?Recorded ?Last Taken ?Type amlodipine 5 mg tablet 5 mg PO DAILY #30 tabs 06/26/22 Unknown Rx Allergy/AdvReac Type Severity Reaction Status Date / Time No Known Allergies Allergy Verified 07/06/22 08:36 Family History Mother Diabetes Father CAD (coronary artery disease) Heart disease Surgical History (Updated 07/06/22 @ 18:[address] Bam Fernando MD) Hx of cholecystectomy H/O knee surgery Social History household members: none Smoking Status: Former smoker alcohol intake: never substance use type: does not use ROS Constitutional Constitutional: Denies chills or fever(s) Eyes Eyes: Denies blurry vision ENT HEENT: Denies abnormal hearing Cardiovascular Cardiovascular: Denies chest pain Respiratory/Chest Respiratory/Chest: Denies shortness of breath with exertion Gastrointestinal Gastrointestinal: Reports abdominal pain, nausea and vomiting Genitourinary Genitourinary: Denies dysuria Musculoskeletal Musculoskeletal: Denies back pain Integumentary Integumentary: Denies jaundice Neurologic Neurologic: Denies abnormal gait Psychiatric Psychiatric: Denies anxiety Physical Exam Const oriented x3 General Appearance: cooperative and well developed HEENT normocephalic and head/scalp atraumatic Eyes PERRL Neck no lymphadenopathy Lymph Lymphatic: no lymphadenopathy noted Resp normal respiratory effort, normal air movement and clear to auscultation bilaterally Cardio regular rate, regular rhythm, S1 normal heart sound and S2 normal heart sound GI Inspection: abdominal distention Palpation: tender RUQ and guarding RUQ Extremity normal capillary refill General Extremity: Negative for edema Skin General Skin Exam: no breakdown Neuro no focal motor deficits and no sensory deficits noted Assessment & Plan Assessment/Plan (1) HTN (hypertension): (2) Biliary stone: PLAN: Plan 1 obstructing biliary stone?admit patient to medical surgical floor, consult Dr. Almanza for ERCP, make patient n.p.o., order CBC, CMP, lipase, ordered Dilaudid 1 mg IV every 2 hours as needed pain and Zofran 4 mg IV every 8 hours as needed nausea. IV normal saline at a rate of 125 cc/h 2. Hypertension?patient is n.p.o. at this time we will manage as needed 3. DVT prophylaxis?SCDs 4. CODE STATUS full verified Charges/Coding Visit Charges Inpatient E&M: 46096 Init Hosp L2
[2025-02-20] MEDS: 0.9% Normal Saline (1000mL) 1,000 ML 125 ML IV ×3 (04:35→20:53)
[2025-02-20] MEDS: 0.9% Saline Lock 10 ML Syringe IV ×7 (04:36→22:58)
[2025-02-20 05:03] LABS: Hematocrit 40.5 % (37-47); Hemoglobin 13.7 g/dL (12.0-15.0); Immature Granulocytes Count 0.070 X10^3/uL (0.0-0.0); Mean Corp Hgb Conc 33.8 g/dL (32-36); Mean Corpuscular Volume 92.5 fL (81-99); Mean Platelet Vol. 9.6 fl (6.2-12.0); NRBC Flagged by Analyzer 0 % (0-5); POSITIVE DIFFERENTIAL YES; Platelet Count 274 K/mm3 (150-450); RBC Distribution Width CV 12.2 % (11.6-14.6); RBC Distribution Width SD 41.4 fl (35.1-43.9); Red Blood Count 4.38 M/mm3 (4.2-5.4); White Blood Count 13.4 K/mm3 (4.4-11.0)
[2025-02-20 05:15] LABS: Prothrombin Time (Protime)PT. 12.5 SECONDS (11.7-14.9)
--- NOTE | 2025-02-20 05:55 | EKG12_ITS ---
Test Reason : AM EKG Blood Pressure : */* mmHG Vent. Rate : 74 BPM Atrial Rate : 74 BPM P-R Int : 182 ms QRS Dur : 80 ms QT Int : 398 ms P-R-T Axes : 40 -10 10 degrees QTcB Int : 441 ms Normal sinus rhythm Normal ECG When compared with ECG of 25-Jun-2022 04:52, Criteria for Septal infarct are no longer Present Confirmed by JORJE MANLEY MD ([id number]), basin operator JERALD TERAN ([id number]) on 02/20/2025 1:04:10 PM Referred By: Confirmed By: JORJE MANLEY MD
[2025-02-20 07:01] LABS: AST(SGOT) 1097 U/L (<=31); Alanine Aminotransfer ALT/SGPT 1158 U/L (<=34); Albumin, Serum 4.2 g/dL (3.4-4.8); Alkaline Phosphatase 411 U/L (35-104); Anion Gap 14 (5-15); BUN 10 mg/dL (4-19); BUN/Creat Ratio 13.2 RATIO (10-20); Calcium,Total 9.0 mg/dL (7.6-11.0); Carbon Dioxide 21.2 mmol/L (21.0-32.0); Chloride 105 mmol/L (98-108); Estimated Creatinine Clearance 75.55 ml/min (50-250); Globulin 3.2 g/dL (2.2-4.2); Glucose 178 mg/dL (70-99); Magnesium 2.2 mg/dL (1.5-2.2); Potassium 3.9 mmol/L (3.3-5.1)
--- NOTE | 2025-02-20 08:27 | PN_ITS ---
Progress Note Presented from [place] with abdominal pain in her right upper quadrant. CT scan demonstrated a 3 to 4 mm calculus in the distal common bile duct. Pending GI evaluation and intervention. Continue with pain management
--- NOTE | 2025-02-20 12:19 | CASEMGMT ---
Dx: Obstructing biliary stone LACE: 1 6-Clicks: 24 Medical record reviewed and patient evaluated for identification of discharge planning needs. Based on this review, at this time criteria are not present to indicate a need for discharge planning. Will remain available to assist with discharge planning needs as identified or requested.
--- NOTE | 2025-02-20 13:00 | CASEMGMT ---
RN CM into pt room, pt resting in bed in no distress. Discussed DC needs, pt denies any questions or concerns at this time. RN CM continue to follow for safe DC.
--- NOTE | 2025-02-20 14:53 | CHAPLAIN ---
Type of Pastoral Visit _x__ Initial Visit ___ Follow-up Visit ___ On-call Visit ___ General Patient Visit ___ Spiritual Assessment ___ Family Conference ___ Bereavement ___ Rapid Response ___ Code Blue ___ Other (describe below) Pastoral Care Referral From _x__ Patient ___ Family ___ Nurse ___ Physician ___ Physics Tutor ___ Freight Car Inspector ___ Other (describe below) Sacrament/Intervention _x__ Active listening ___ Anointing ___ Scientologist ___ Bereavement ___ Communion ___ Swathi exploration ___ ___ Life review _x__ Prayer ___ Reconciliation ___ Sacrament of Sick _x__ Supportive presence ___ Wedding ___ Other (describe below) Pastoral Comments patient is resting quietly but awake; pt is alone and states that 'family members are combining at home as they have to'; pt is not concerned about being alone per her words; pt expects to have surgical procedure later this afternoon which is on an emergency basis; pt had this similar experience a couple of years ago and is familiar with hospital and surgery; pt welcomes a prayer but does not ask for more intervention
[2025-02-20] MEDS: Lactated Ringers 1,000 ML 15 ML IV (15:59)
--- NOTE | 2025-02-20 16:15 | EX.PCM.CON.G ---
HPI Consult Data Date of Consult: 02/20/25 HPI Narrative HPI Narrative: INEZ SMITH, is a 65 F who presents to our hospital from [facility] with chief complaint of abdominal pain. Patient has had 10 days of worsening pain in her right upper quadrant of her abdomen. She has a history of cholecystectomy and hypertension. Patient has complained of nausea and vomiting with no fever or chills, no chest pain or shortness of breath. CT scan reveals a 3 to 4 mm calculus in the distal common bile duct. She was transferred here for therapeutic ERCP. Laboratory studies showed white blood cell count of 12,000 with a total bilirubin of 1.5, ALT 546, AST 722 with a lipase of 36, lactate 1.5. Patient experiencing significant pain. PFSH Medical History Former smoker Home Medications ?Medication ?Instructions ?Recorded ?Last Taken ?Type amlodipine 5 mg tablet 5 mg PO DAILY #30 tabs 06/26/22 02/18/25 Rx Allergy/AdvReac Type Severity Reaction Status Date / Time No Known Allergies Allergy Verified 02/20/25 15:53 Family History Mother Diabetes Father CAD (coronary artery disease) Heart disease Surgical History Hx of cholecystectomy H/O knee surgery Social History household members: none Smoking Status: Former smoker alcohol intake: never substance use type: does not use ROS Constitutional Constitutional: Denies fatigue, fever(s), poor appetite, weight gain or weight loss Gastrointestinal Gastrointestinal: Denies belching, bloating, change in bowel habits, change in stool character, chewing difficulty, coffee ground emesis, constipation, cramping, diarrhea, dyspepsia, dysphagia, early satiety, excessive flatus, fecal incontinence, heartburn, hematemesis, hematochezia, hemorrhoids, loose stools, melena, nausea, odynophagia, rectal bleeding, tenesmus, vomiting or weight changes Physical Exam Const alert, oriented x3, no apparent distress and healthy appearing General Appearance: cooperative GI normal to inspection, nondistended, normoactive bowel sounds, soft to palpation, non-tender and non-distended Percussion: normal to percussion Rectal Exam: deferred Lab / Micro Data 02/20/25 04:29 02/20/25 04:29 Labs: Laboratory Results - last 24 hr 02/20/25 04:29: WBC 13.4 H, RBC 4.38, Hgb 13.7, Hct 40.5, MCV 92.5, MCH 31.3, MCHC 33.8, RDW Std Deviation 41.4, RDW Coeff of Joleen 12.2, Plt Count 274, MPV 9.6, Immature Gran % (Auto) 0.500, Neut % (Auto) 92.1 H, Lymph % (Auto) 4.0 L, Leslie % (Auto) 3.1, Eos % (Auto) 0.0, Baso % (Auto) 0.3, Absolute Neuts (auto) 12.4 H, Absolute Lymphs (auto) 0.53 L, Nucleated RBC % 0, PT 12.5, INR 0.9, Sodium 140, Potassium 3.9, Chloride 105, Carbon Dioxide 21.2, Anion Gap 14, BUN 10, Creatinine 0.76, Estim Creat Clear Calc 75.55, Est GFR (MDRD) Non-Af 87, BUN/Creatinine Ratio 13.2, Glucose 178 H, Calcium 9.0, Magnesium 2.2, Total Bilirubin 3.09 H, AST 1097 H, ALT 1158 H, Alkaline Phosphatase 411 H, Total Protein 7.4, Albumin 4.2, Globulin 3.2, Albumin/Globulin Ratio 1.3 Assessment & Plan Assessment/Plan (1) S/P laparoscopic cholecystectomy: (2) Biliary stone: PLAN: 65-year-old comes in with abdominal pain and discovered to have increased LFTs consistent with jaundice and cholecystitis. Imaging shows obstructing stone in distal common bile duct. She will undergo ERCP. She was explained alternatives, risk and benefits include not withstanding bleeding, infection, sepsis, perforation, need much urgent . She have an ASA of 3. Charges/Coding Visit Charges Inpatient E&M: 84447 Init Hosp L3
--- NOTE | 2025-02-20 17:00 | RAD_ITS ---
PROCEDURE: ERCP BILIARY/PANCREAS 02/20/2025 REASON FOR EXAM: ERCP TECHNIQUE: Procedure Code: RADERCP Modality: DX Procedure: ERCP BILIARY/PANCREAS FINDINGS: Intraoperative fluoroscopy for ERCP was performed. 1 image. 8.1 seconds of fluoroscopic time. 2.54 mGy. See procedure report for full details. RAD/ERCP Biliary/Pancreas IMPRESSION: As above. Reading Location: [id number]
--- NOTE | 2025-02-20 17:44 | PRE.ANES_ITS ---
ASA Classification* ASA Classification ASA Classification: 3 and E Assessment & Plan Anesthesia* Anesthesia Assessment Anesthesia Assessment: Discussed sedation and/or anesthesia options, risks, benefits, and alternatives with patient/parents/legal guardian/POA. Questions invited. The patient/parents/legal guardian/POA seems to understand and agrees to proceed with anesthesia plan. Reviewed the physical assessment, medical history, allergy history and patient home medications list prior to surgery/procedure/anesthetic and documented any changes. Performed airway and anesthesia risk assessments. Anesthesia Type Anesthesia Type: General History Source History Obtained from:: Patient and Chart Anesthesia Focused Assessment* Temperature: 97.8 F Pulse Rate: 74 Blood Pressure: 115/99 Respiratory Rate: 16 Pulse Ox: 97 Oxygen Delivery Method: Room Air Oxygen Flow Rate (L/min): 2 Airway Assessment Mouth opens: >3 cm Mallampati Score: IV Teeth Condition: Loose (Tooth #24 and 25 are loose.) and Missing (Patient has several missing teeth.) Neck Range of motion (ROM): Limited ROM (Somewhat Decreased) Labs Anesthesia Preop lab: CBC WBC, (4.4-11.0) 13.4 K/mm3 H Today, 04: RBC, (4.2-5.4) 4.38 M/mm3 Today, 04: Hgb, (12.0-15.0) 13.7 g/dL Today, 04: Hct, (37-47) 40.5 % Today, 04:29 Plt Count, (150-450) 274 K/mm3 Today, 04:29 CHEMISTRY Potassium, (3.3-5.1) 3.9 mmol/L Today, 04:29 Sodium, (133-145) 140 mmol/L Today, 04:29 Magnesium, (1.5-2.2) 2.2 mg/dL Today, 04:29 BUN, (4-19) 10 mg/dL Today, 04:29 Creatinine, (0.70-1.20) 0.76 mg/dL Today, 04:29 Glucose, (70-99) 178 mg/dL H Today, 04:29 COAG PT, (11.7-14.9) 12.5 SECONDS Today, 04:29 Pre-Assessment Diagnosis/Proposed Procedure Planned Operative Procedure(s): ERCP Anesthesia History Anesthesia History - service engineer: Anesthesia History - service engineer Hx Hospitalization Any Problems With Anesthesia Yes 02/20/25 08:27 Cholinesterase deficiency No 02/20/25 08:27 You/Your Family Experience No 02/20/25 08:27 fever (hyperthermia) with Relationship Recent Exposure to Contagious No 02/20/25 08:27 Disease Does patient have nerve No 02/20/25 08:27 stimulator Patient instructed to have device shut off --Does patient have Pacemaker No 02/20/25 15:01 or ICD? When Was Last Pacemaker Check QUESTION #4 FULL TEXT: You/Your Family Experience fever (hyperthermia) with Anesthesia Last Oral Intake Last Oral intake: Last Oral Intake NPO since 00:00 02/20/25 15:01 Meds taken in AM with sips of No 02/20/25 15:01 water? Meds patient instructed to take am of surgery PONV PONV - service engineer: PONV - service engineer Female HX of Motion Sickness HX of N/V After Surgery Non-Smoker Duration of Surgery greater than 60 minutes Number of Risk Factors PONV Score Height & Weight Height & Weight: Anesthesia: Height & Weight Height 5 ft 6 in 02/20/25 15:01 Weight: 81.7 kg 02/20/25 15:01 Body Mass Index (BMI) 29.0 02/20/25 15:01 Respiratory Assessment Respiratory Assessment - service engineer: Respiratory Tract Infection Hx - service engineer Hx Respiratory Tract Infection No 02/20/25 08:27 STOP Sleep Apnea STOP Sleep Apnea - service engineer: STOP Sleep Apnea - service engineer Hx Hypertension Yes 02/20/25 04:10 Hx Sleep Apnea No 02/20/25 04:10 CPAP BIPAP Do you snore loudly (louder No 02/20/25 04:10 than talking or can be heard Do you often feel tired/ No 02/20/25 04:10 fatigued/ sleepy during daytime? Has anyone observed you stop No 02/20/25 04:10 breathing during sleep? STOP Results Negative 02/20/25 04:10 QUESTION #5 FULL TEXT : Do you snore loudly (louder than talking or can be heard through closed doors)? 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 Specify any problems Hx of Preganancy in last 3 No 02/20/25 04:10 Months Nurse Filling Out Transfusion RSMAILES 02/20/25 04:10 & Questions: Date: 02/20/25 02/20/25 04:10 Time: 04:50 02/20/25 04:10 Patient unable to answer at this time (ie. confused, unrespo /Reproduction History /Reproductive History - service engineer: /Reproductive Hx- service engineer Hx Now No 02/20/25 08:27 Gestational Age (in weeks): EDC: Hx Hx Para Hx Section SAB No 02/20/25 08:27 Active Medications Active Medications: Current Medications Generic Name Dose Route Start Last Admin Trade Name Freq PRN Reason Stop Dose Admin Hydromorphone HCl 1 mg 02/20/25 04:28 02/20/25 17:16 Hydromorphone 1 Mg/Ml Syringe IV 1 mg Q2H PRN PRN Administration Pain Score 6-10 Sodium Chloride 1,000 mls @ 125 mls/hr 02/20/25 04:28 02/20/25 15:59 IV Infused .Q8H TAYA Infusion Lactated Ringer's 1,000 mls @ 15 mls/hr 02/20/25 16:00 02/20/25 15:59 IV 15 mls/hr .Q48H TAYA Administration Ondansetron HCl 4 mg 02/20/25 04:28 02/20/25 15:02 Ondansetron 4 Mg/2 Ml Vial IV 4 mg Q8H PRN PRN Administration NAUSEA/VOMITING Sodium Chloride 10 - 40 ml 02/20/25 04:16 02/20/25 15:03 0.9% Saline Lock 10 Ml Syringe IV 10 ml UD PRN Administration SALINE FLUSH PFSH Medical History Former smoker Home Medications ?Medication ?Instructions ?Recorded ?Last Taken ?Type amlodipine 5 mg tablet 5 mg PO DAILY #30 tabs 06/2602/18/25 Rx Allergy/AdvReac Type Severity Reaction Status Date / Time No Known Allergies Allergy Verified 02/20/25 15:53 Family History Mother Diabetes Father CAD (coronary artery disease) Heart disease Surgical History Hx of cholecystectomy H/O knee surgery Social History household members: none Smoking Status: Former smoker alcohol intake: never substance use type: does not use Review of Systems (Anesthesia) ROS Narrative System reviewed and no additional complaints, except as documented.
--- NOTE | 2025-02-20 19:30 | PN.HOSP_ITS ---
Hospitalist Note 02/20/[address] Almanza, unfortunately he notes he was unable to find ampulla with a large diverticulum with stone in her duodenum. Dr. Almanza recommends transfer to a larger facility with GI availability. Discussed with net c developer PCU staff and awaiting insurance facility parameters and then will initiate transfer. Dr. Almanza notes intention to review these findings and recommendation of transfer with patient once sedation lessened.
--- NOTE | 2025-02-20 19:32 | OP.ERCP_ITS ---
Patient Name: Joelle Beckett Procedure Date: 02/20/2025 5:52 PM Date of : 1960 Age: 65 Procedure: ERCP Indications: Bile duct stone(s), Abdominal pain of suspected biliary origin, Suspected ascending cholangitis, Jaundice, Elevated liver enzymes Providers: Sundar Almanza DO Medicines: General Anesthesia Patient Profile: This is a 65 year old female. Refer to note in patient chart for documentation of history and physical. Patient has symptoms of acute right upper quadrant abdominal pain and acute jaundice. This patient has no history of previous ERCP. Complications: No immediate complications. Procedure: Pre-Anesthesia Assessment: - Prior to the procedure, a History and Physical was performed, and patient medications and allergies were reviewed. The patient is competent. The risks and benefits of the procedure and the sedation options and risks were discussed with the patient. All questions were answered and informed consent was obtained. Patient identification and proposed procedure were verified by the physician in the pre-procedure area. Mental Status Examination: alert and oriented. Airway Examination: normal oropharyngeal airway and neck mobility. Respiratory Examination: clear to auscultation. CV Examination: normal. Prophylactic Antibiotics: The patient does not require prophylactic antibiotics. Prior Anticoagulants: The patient has taken no anticoagulant or antiplatelet agents. ASA Grade Assessment: II - A patient with mild systemic disease. After reviewing the risks and benefits, the patient was deemed in satisfactory condition to undergo the procedure. The anesthesia plan was to use general anesthesia. Immediately prior to administration of medications, the patient was re-assessed for adequacy to receive sedatives. The heart rate, respiratory rate, oxygen saturations, blood pressure, adequacy of pulmonary ventilation, and response to care were monitored throughout the procedure. The physical status of the patient was re-assessed after the procedure. After obtaining informed consent, the scope was passed under direct vision. Throughout the procedure, the patient's blood pressure, pulse, and oxygen saturations were monitored continuously. The Duodenoscope was introduced through the mouth, and advanced to the duodenum without successful cannulation. The ERCP was accomplished without difficulty. The patient tolerated the procedure well. Scope In: 6:17:30 PM Scope Out: 7:22:43 PM Total Procedure Duration Time 1 hour 5 minutes 13 seconds Findings: The supervisor dimension warehouse film was normal. The scope was passed through the upper GI tract without discovering UGI findings. The major papilla was not found because it was located within a diverticulum. The minor papilla was not found. Impression: - The major papilla was not found because it was located within a diverticulum. Recommendation: Transfer patient for a percutaneous transhepatic cholangiogram with possible rendezvous procedure Procedure Code(s): --- Professional --- 41371, Esophagogastroduodenoscopy, flexible, transoral; diagnostic, including collection of specimen(s) by brushing or washing, when performed (separate procedure) CPT copyright 2021 [employer]. All rights reserved. The codes documented in this report are preliminary and upon professional fee coder review may be revised to meet current compliance requirements. Sundar Almanza DO 02/20/2025 7:31:56 PM This report has been signed electronically. Number of Addenda: 0 Note Initiated On: 02/20/2025 5:52 PM
--- NOTE | 2025-02-20 19:32 | OP.PROVAT_ITS ---
02/20/2025 No Primary Care Physician Re : ERCP procedure for Joelle Beckett Dear Care Physician This procedure was performed on Thursday, February 20, 2025. My impressions and recommendations are as follows: Impressions : - The major papilla was not found because it was located within a diverticulum. Recommendations : Transfer patient for a percutaneous transhepatic cholangiogram with possible rendezvous procedure My findings are described in the full procedure note, which is enclosed. If I can be of further assistance, please feel free to contact me at . Sincerely, Sundar Almanza, 02/20/2025 7:31:56 PM This report has been signed electronically.
--- NOTE | 2025-02-20 19:41 | PCM.POST.ANE ---
Anesthesia: Postop Eval I Current Vital Signs Temperature: 100 F Pulse Rate: 79 Blood Pressure: 153/85 Respiratory Rate: 16 Pulse Ox: 94 Oxygen Delivery Method: Nasal Cannula Oxygen Flow Rate (L/min): 4 Assessment Airway patent: Yes Spontaneous unlabored respirations: Yes Mental status: Asleep nausea: No Vomiting: No Anesthesia Complication: No Fluid Hydration Crystalloid volume administer (ml): 300 Total IV fluid infused: 300 Progress Note Anesthesia document: Postop Eval 1 completed: Yes
--- NOTE | 2025-02-20 20:07 | SUR.PHASEI ---
CALLED FOR TRANSPORT
[2025-02-20] MEDS: Piperacil/Tazobactam 3.375 GM in 0.9% Normal Saline (50mL MB+) 50 ML IV (21:38)
--- NOTE | 2025-02-20 22:12 | PCM.POSTANE2 ---
Anesthesia Postop Eval I Sum Postop Eval Completion status Anesthesia document: Postop Eval 1 completed: Yes Anesthesia Postop Eval I Summary Anesthesia Postop Eval I Summary: Anesthesia Postop Eval I: Assessment Summary Airway patent Yes 02/20/25 22:11 Spontaneous unlabored Yes 02/20/25 22:11 respirations Mental status Asleep 02/20/25 22:11 nausea No 02/20/25 22:11 Vomiting No 02/20/25 22:11 Anesthesia Postop Eval I: Fluid Summary Crystalloid volume administer 300 02/20/25 22:11 (ml) Colloids volume administered ( ml) Blood Product volume administered (ml) Total IV fluid infused 300 02/20/25 22:11 Anesthesia Postop Eval I: Summary Notes Anesthesia Complication No 02/20/25 22:11 Anesthesia Complication Comment: Post-operative progress note Anesthesia: Postop Eval II Evaluation Mental status: Awake and Calm Pain Level: 1 nausea: No Vomiting: No Complications Anesthesia Complication: No
--- NOTE | 2025-02-20 22:51 | PCM.DC.SUM ---
Providers Date of Admission: 02/20/25 Date of Discharge: 02/20/25 Primary Care Physician: Evelin Primary Care Phys Consultations 02/20/25 04:28 Consult: Gastroenterology Routine Consulting Provider: Cindy Berman Reason for Consult: ercp, biliary stone EMERGENT Consult: Yes MD Notified: Yes Date Notified: 02/20/25 Time Notified: 04:23 Method of Notification: ED Physician Initiated Reason For Visit: OBSTRUCTING BILIARY STONE Diagnosis Discharge Diagnosis (1) S/P laparoscopic cholecystectomy: Status: Acute Code(s): Z90.49 - Acquired absence of other specified parts of digestive tract (2) Biliary stone: Status: Acute Code(s): K80.20 - Calculus of gallbladder without cholecystitis without obstruction Plan: DISCHARGE DIAGNOSES: #1. Acute jaundice secondary to acute obstructive biliary stone with significant hyperbilirubinemia, transaminitis with unfortunate failed ERCP attempts secondary to inability to locate major papilla secondary to being located in diverticulum #2. Hypertension #3. Former tobacco use #4. Overweight Medications at Discharge Home Medications amlodipine 5 mg tablet 5 mg PO DAILY #30 tabs 06/26/22 Hospital Course Operations ERCP Summary of Care Provided Minutes Spent on Discharge: 45 Hospital Course: The patient is a 65-year-old female who was transferred from [facility] and admitted to [facility] as a direct admission on 02/20/2025 secondary to a 10-day history of persistent worsening abdominal pain primarily in the right upper quadrant status post previous cholecystectomy with nausea and emesis but no fevers or chills with outside facility workup CT abdomen and pelvis with a 3 to 4 mm calculus in the distal common bile duct, CBC with WC 12 with mild left shift, total bilirubin 1.5, AST/ALT 722/546, lipase 36, lactate 1.5 with ED discussion at outside facility with gastroenterology Dr. Almanza with decision to transfer for ERCP. Workup upon arrival included CBC with WC 13.4 with left shift, CMP with total bilirubin increased to 3.09, AST/ALT 1097/1158. Patient was evaluated by gastroenterology and ERCP was initiated unfortunately however the major papilla was not found secondary being located with in a diverticulum therefore GI recommended and discussed with patient transfer to tertiary facility for percutaneous transhepatic cholangiogram with possible rendezvous procedure. Hospital service discussed with the ED and given this recommendation GI recommended initial transfer [facility]. Discussed case with patient hospitalist and also records had been discussed and reviewed previous to this with GI who also excepted the patient therefore patient transition to [facility] For further evaluation and gastroenterology intervention/care. Weight / BMI Weight Weight: 180 lb 1.883 oz Body Mass Index (BMI) 29.0 ABG / Lab / Microbiology Data 02/20/25 04:29 02/20/25 04:29 Laboratory: Laboratory Results - last 24 hr 02/20/25 04:29: WBC 13.4 H, RBC 4.38, Hgb 13.7, Hct 40.5, MCV 92.5, MCH 31.3, MCHC 33.8, RDW Std Deviation 41.4, RDW Coeff of Joleen 12.2, Plt Count 274, MPV 9.6, Immature Gran % (Auto) 0.500, Neut % (Auto) 92.1 H, Lymph % (Auto) 4.0 L, [place] % (Auto) 3.1, Eos % (Auto) 0.0, Baso % (Auto) 0.3, Absolute Neuts (auto) 12.4 H, Absolute Lymphs (auto) 0.53 L, Nucleated RBC % 0, PT 12.5, INR 0.9, Sodium 140, Potassium 3.9, Chloride 105, Carbon Dioxide 21.2, Anion Gap 14, BUN 10, Creatinine 0.76, Estim Creat Clear Calc 75.55, Est GFR (MDRD) Non-Af 87, BUN/Creatinine Ratio 13.2, Glucose 178 H, Calcium 9.0, Magnesium 2.2, Total Bilirubin 3.09 H, AST 1097 H, ALT 1158 H, Alkaline Phosphatase 411 H, Total Protein 7.4, Albumin 4.2, Globulin 3.2, Albumin/Globulin Ratio 1.3 Radiography Diagnostic Testing: Radiology Impression Endo Retro Cholangiopancreatogram 02/20/25 17:00 IMPRESSION: As above. Reading Location: [id number] D/C Instructions DC O2, CPAP, BIPAP Needs Home O2 Discharge instructions: No Meaningful Use Info Meaningful Use Meaningful Use Diagnoses (Choose all that apply): None applicable Discharge Plan Admission Admit Date/Time: 02/20/25 04:21 Attending Provider: Farhad Damon Primary Care Provider: Care Physician,No Primary Consulting Providers: Norman Morrow; Sundar Almanza; Kay Shelton; Audrey Cruz; Bridget Zapata; Baltazar Whaley Discharge Orders/Prescriptions Prescriptions: No Action amlodipine 5 mg Tablet 5 mg PO DAILY Qty: 30 0RF Referrals / Follow Up: Care Physician,No Primary [Primary Care Provider, Medical] Disposition Discharge Orders: Discharge Patient (Routine); Ordered 02/20/25 Ordered By: Dr. Monet Escobedo Charges/Coding Visit Charges Inpatient E&M: 14215 Disch Hosp >30min
--- NOTE | 2025-02-20 23:11 | NURSING ---
Biliary stone removal by ERCP unsuccessful. Patient being transferred to [facility]. Patient agreeable to transfer. Patient accepted to room 3211. Report called to accepting care RN. Transport team arrived as report to RN completed. Patient assisted to bathroom, then given IV dilaudid and zofran for comfort during transport. Patient ambulated to stretcher with 1 person assist. Patient remains on 4 L NC O2.
--- OUTSIDE RECORDS SUMMARY | 2025-02-21 00:46 | XMS RPT_ITS ---
Author Name Auto Generated Organization [facility] Care Team Providers Care Testing Specialist Name Role Phone NONE, NONE Consulting Unavailable NONE, NONE Primary Care Unavailable LINDA ALVARENGA, DR~[phone] CYNDIE Goff Admitting Unavailable LINDA ALVARENGA, ~[phone] CYNDIE Goff Attending Unavailable NONE, NONE Consulting Unavailable MURPHY YARN DYER, JOANN Consulting Unavailab celine MURPHY YARN DYER, JOANN Consulting Unavailab le CARLITO DO, MILE Consulting Unavailable SILK DO, MILE Consulting Unavailable LINDA ALVARENGA, DR CYNDIE Goff Consulting Unavaila joan MCKEON MD, DR CYNDIE Goff Consulting Unavaila ble WOOD DO, JUAN PABLO A Consulting Unavailable WOOD DO, JUAN PABLO A Consulting Unavailable NONE, NONE Primary Care Unavailable VERO ALVARENGA, DR DALAL Attending Unavail khadra PHMA MD, DR DALAL Consulting Unavail khadra PHAM MD, DR DALAL Admitting Unavail khadra PHAM MD, DR DALAL Consulting Unavail able SAMMI ALVAREGNA, GALLITO Villanueva Consulting Unavailable GALLITO CHAPA MD Consulting Unavailable MARCELINO ALVARENGA, LYNNE Villanueva Consulting Unavailable LYNNE BENSON MD Consulting Unavailable MCFARLAND COTTON EXPERT, ALYSSA N Consulting Unavailabl e MCFARLAND COTTON EXPERT, ALYSSA N Consulting Unavailabl e NONE, NONE Consulting Unavailable NONE, NONE Consulting Unavailable PELC, LETY P Consulting Unavailable PELC, LETY P Consulting Unavailable NONE, NONE Primary Care Unavailable LEVINE YARN DYER~[phone], ABNER RENTERIA C Admit ting Unavailable LEVINE YARN DYER~[phone], LEVINE AMBER C Atten ding Unavailable ABNER DELONG, MYRA C Consulting Unavailab le MYRA LEVINE Consulting Unavailable VERO ALVARENGA, ~[phone] KATLIN Admitting Unavailable VERO ALVARENGA, ~[phone] KATLIN Attending Unavailable KATLIN PHAM MD Consulting Unavailabl e NONE, NONE Primary Care Unavailable VERO ALVARENGA, DR DALAL Consulting Unavail able NONE, NONE Consulting Unavailable NURSEREFERRAL, NURSEREFERRAL Consulting Helena corrine MONTERROSO MD, FABIO Rodriguez Consulting Unavailable LOC ALVARENGA, FABIO Rodriguez Consulting Unavailable EMILIANO MCCALL Referring Unavailable PERRI DE LEON Admitting Unavaila ble PERRI DE LEON Attending Unavaila ble ISSAKJOSE ELIAS Consulting Unavaila ble PROBLEMS DATE TYPE CONDITION / CODE ATTENDING STATUS [facility] 02/21/2025 Active Abdominal pain / R10.9(ICD-10) PERRI DE LEON Active [facility] 02/21/2025 Active Transaminitis / R74.01(ICD-10) PERRI DE LEON Active [facility] 2025 Admitting diagnosis ESSENTIAL PRIMARY HYPERTENSION / I10(ICD-10) ABNER YARN DYER~[phone] , ABNER Lees Active [facility] 2025 Unknown ESSENTIAL PRIMAR Y HYPERTENSION / I10(ICD-10) ABNER YARN DYER~[phone] , ABNER Lees Active [facility] 12/10/2024 Admitting diagnosis COMPLEX TEAR MM CURR LT KNEE INIT / S83.232A(ICD-10) DR KATLIN PHAM MD Active [facility] 12/10/2024 Unknown COMPLEX TEAR MM CURR LT KNEE INIT / S83.232A(ICD-10) DR KATLIN PHAM MD Active [facility] 12/10/2024 Unknown COMPLEX TEAR LM CURR LT KNEE INIT / S83.272A(ICD-10) VERO ALVARENGA DR DALAL [facility] 12/10/2024 Unknown 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) VERO ALVARENGA, DR DALAL [facility] 12/10/2024 Unknown EFFUSION LEFT KN EE / M25.462(ICD-10) VERO ALVARENGA, DR DALAL [facility] 12/10/2024 Unknown 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) VERO ALVARENGA, DR DALAL [facility] 12/10/2024 Unknown OTH ARTIC CARTLA G DIS OTH SPEC SITE / M24.19(ICD-10) VERO ALVARENGA, DR DALAL [facility] 12/10/2024 Unknown PERSONAL HISTORY OF NICOTINE DEPEND / Z87.891(ICD-10) VERO ALVARENGA, DR DALAL [facility] 12/10/2024 Unknown ENCOUNTER PREPROCEDURAL LAB EXAM / Z01.812(ICD-10) VERO ALVARENGA, DR DALAL [facility] 12/10/2024 Unknown ENCOUNTER OTHER PREPROCEDURAL EXAM / Z01.818(ICD-10) VERO ALVARENGA, DR VITALEKATLIN [facility] 07/26/2024 Admitting diagnosis EFFUSION LEFT KNEE / M25.462(ICD-10) VERO ALVARENGA, ~[phone] [facility] 07/26/2024 Unknown SYNOVIAL CYST PO P SPACE LEFT KNEE / M71.22(ICD-10) VERO ALVARENGA, ~[phone] [facility] PROCEDURES No Procedure Records Found RESULTS CBC W AUTO DIFF BLD Collected: 02/21/2025 1:[address] atus: F Source: [facility] Order Comment: Specimen Type : BLOOD SPECIMEN Ordering Facility: [facility] Address: [address] [place], [place] [id number] TYPE CODE TESTS RESULT OUT OF RANGE REFERENCE UNITS LAB 6690-2(LOINC) WBC # Bld Auto 13.40 High 3.70-11.00 k/uL LAB 789-8(LOINC) RBC # Bld Auto 3.81 Low 3.90-5.20 m/ uL LAB 718-7([facility]) Hgb Bld-mCnc 11.7 11.5-15.5 g/dL LAB 4544-3([facility]) Hct VFr Bld Auto 36.3 36.0-46.0 % LAB 787-2([facility]) MCV RBC Auto 95.3 80.0-100.0 fL LAB 785-6([facility]) MCH RBC Qn Auto 30.7 26.0-34.0 p g LAB 786-4([facility]) MCHC RBC Auto-mCnc 32.2 30.5-36.0 g/dL LAB 81245-2([facility]) RDW RBC-Rto 12.8 11.5-15.0 % LAB 777-3([facility]) Platelet # Bld Auto 228 150-400 k/uL LAB 60359-0([facility]) PMV Bld Auto 9.4 9.0-12.7 fL LAB 770-8([facility]) Neutrophils/leuk NFr Bld Auto 87.0 % LAB 751-8([facility]) Neutrophils # Bld Auto 11.64 High 1.45-7.50 k/uL LAB 736-9([facility]) Lymphocytes/leuk NFr Bld Auto 6.9 % LAB 731-0([facility]) Lymphocytes # Bld Auto 0.93 Low 1.00-4.00 k/uL LAB 5905-5([facility]) Monocytes/leuk NFr Bld Auto 5.2 % LAB 742-7([facility]) Monocytes # Bld Auto 0.70 <0.87 k/uL LAB 713-8([facility]) Eosinophil/leuk NFr Bld Auto 0.1 % LAB 711-2([facility]) Eosinophil # Bld Auto <0.03 <0.46 k/uL LAB 706-2([facility]) Basophils/leuk NFr Bld Auto 0.1 % LAB 704-7([facility]) Basophils # Bld Auto <0.03 <0.11 k/uL LAB 00257-9([facility]) Imm Granulocytes/darío k NFr Bld Auto 0.7 % LAB 20841-2([facility]) Imm Granulocytes # Bld Auto 0.10 High <0.10 k/uL LAB 00326-7([facility]) nRBC/100 WBC Bld-Rto 0.0 /100 WBC LAB 771-6([facility]) nRBC # Bld Auto <0.01 <0.01 k/u L LAB 13577-1([facility]) Differential method Bld Auto Performed By: #### 38130-9 # ### [facility] CLIA [id number] [address] DIRECT BILIRUBIN BLOOD Collected: 02/21/2025 1:21 AM Status: F Source: [facility] Order Comment: Specimen Type : BLOOD SPECIMEN Ordering Facility: [facility] Address: [address] [place] [address] TYPE CODE TESTS RESULT OUT OF RANGE REFERENCE UNITS LAB 31738-2([facility]) Bilirub Conj SerPl-mCnc 3.9 High <0.3 mg/dL Performed By: #### DBIL, 243 23-8, 33991-0, 52781-8 #### [facility] CLIA [id number] [address] COMP METAB 2000 PNL SERPL Collected: 1:21 AM Status: F Source: [facility] Order Comment: Specimen Type : BLOOD SPECIMEN Ordering Facility: [facility] Address: [address] [place] [address] TYPE CODE TESTS RESULT OUT OF RANGE REFERENCE UNITS LAB 2885-2([facility]) Prot SerPl-mCnc 6.2 Low 6.3-8.0 g/dL LAB 1751-7(INC) Albumin SerPl-mCnc 3.5 Low 3.9-4.9 g/dL LAB 82341-5(INC) Calcium SerPl-mCnc 8.5 8.5-10.2 mg/dL LAB 1975-2[facility] Bilirub SerPl-mCnc 4.8 High 0.2-1.3 mg/dL LAB 6768-6([facility]) ALP SerPl-cCnc 323 High 34-123 U/L LAB 59698-2([facility]) AST SerPl w P-5'-P-cCnc 250 High 13-35 U/L LAB 1743-4(LOINC) ALT SerPl w P-5'-P-cCnc 544 High 7-38 U/L LAB 2345-7(LOINC) Glucose SerPl-mCnc 113 High 74-99 mg/dL Result Comment: The [place] [employer] (ADA) provides guidance for cutoff values for fasting glucose and random glucose. The ADA defines fasting as no caloric intake for at least 8 hours. Fasting plasma glucose results between 100 to 125 mg/dL indicate increased risk for diabetes (prediabetes). Fasting plasma glucose results greater than or equal to 126 mg/dL meet the criteria for diagnosis of diabetes. In the absence of unequivocal hyperglycemia, results should be confirmed by repeat testing. In a patient with classic symptoms of hyperglycemia or hyperglycemic crisis, random plasma glucose results greater than or equal to 200 mg/dL meet the criteria for diagnosis of diabetes. Reference: Standards of Medical Care in Diabetes 2016, [place] [employer]. Diabetes Care. 2016.39(Suppl 1). LAB 3094-0(LOINC) BUN SerPl-mCnc 12 7-21 mg/dL LAB 2160-0(LOINC) Creat SerPl-mCnc 0.69 0.58-0.96 mg/dL LAB 2951-2(LOINC) Sodium SerPl-sCnc 140 136-144 mmol/L LAB 2823-3(LOINC) Potassium SerPl-sCnc 3.9 3.7-5.1 mmol/L LAB 2075-0(LOINC) Chloride SerPl-sCnc 105 98-107 mmol/L LAB 2028-9(LOINC) CO2 SerPl-sCnc 24 22-30 mmol/L LAB 1863-0(LOINC) Anion Gap4 SerPl-sCnc 11 8-15 mmol/L LAB 88510-6(LOINC) eGFRcr SerPlBld CKD-EPI 2020 96 >=60 mL/min/1. 73m??? Result Comment: Estimated Gl omerular Filtration Rate (eGFR) is calculated using the 2020 CKD-EPI creatinine equation. This equation utilizes serum creatinine, sex, and age as parameters. The creatinine assay has traceable calibration to isotope dilution-mass spectrometry. Refer to KDIGO guidelines for clinical interpretation. In patients with unstable renal function, e.g. those with acute kidney injury, the eGFR may not accurately reflect actual GFR. Performed By: #### DBIL, 243 23-8, 86687-3, 81263-5 #### [facility] CLIA [id number] [address] MAGNESIUM SERPL-MCNC Collected: 02/21/2025 1:21 AM S tatus: F Source: [facility] Order Comment: Specimen Type : BLOOD SPECIMEN Ordering Facility: [facility] Address: [address] [place] [address] TYPE CODE TESTS RESULT OUT OF RANGE REFERENCE UNITS LAB 03630-6(LOINC) Magnesium SerPl-mCnc 2.1 1.7-2.3 mg/dL Performed By: #### DBIL, 243 23-8, 37242-4, 26225-8 #### [facility] CLIA [id number] [address] PROCALCITONIN SERPL-MCNC Collected: 02/21/2025 1:21 A M Status: F Source: [facility] Order Comment: Specimen Type : BLOOD SPECIMEN Ordering Facility: [facility] Address: [address] [place] [address] TYPE CODE TESTS RESULT OUT OF RANGE REFERENCE UNITS LAB 99936-3(LOINC) Procalcitonin SerPl-mCnc 1.07 High <0.09 ng/mL Result Comment: For a guided interpretation of test results, please visit the Change in Procalcitonin Calculator, [email or web address]. Performed By: #### DBIL, 243 23-8, 83925-2, 65413-2 #### [facility] CLIA [id number] [address] OF [place] LACTATE Collected: 10:14 PM Status: F Source: [facility] TYPE CODE TESTS RESULT OUT OF RANGE REFERENCE UNITS LAB LACTICWB(LOINC) LACTIC ACID 1.3 0.4-2.0 mmol /L Performed By: #### 2524-7 ## ## [facility] [address] [place] [address] Eligibility Analyst - Melva Garcia CLIA [id number] BILIRUBIN DIRECT Collected: 02/19/2025 6:31 PM Statu s: F Source: [facility] TYPE CODE TESTS RESULT OUT OF RANGE REFERENCE UNITS LAB 85156-5(LOINC) Bilirub Conj SerPl-mCnc 1.0 High <=0.2 mg/dL Performed By: #### 70755-4 # ### [facility] [address] [place], [place] [address] [id number] LACTATE Collected: 6:31 PM Status: F Source: [facility] TYPE CODE TESTS RESULT OUT OF RANGE REFERENCE UNITS LAB LACTICWB(LOINC) LACTIC ACID 1.5 0.4-2.0 mmol /L Performed By: #### 2524-7 ## ## [facility] [address] [place], [place] [address] Eligibility Analyst - [facility] [id number] CT ABDOMEN AND PELVIS WITH CONTRAST Observed: 02/19/2025 6:16 PM Status: F Source: [facility] EXAMINATION: CT ABDOMEN AND PELVIS WITH CONTRAST, 02/19/2025 6:16 PM EDT HISTORY: Pain COMPARISON: CT abdomen pelvis from 06/20/2022. TECHNIQUE: CT scan of the abdomen and pelvis was performed with IV contrast. CT dose reduction technique was used, including Automated Exposure Control. Oral contrast was not given. Reconstructed coronal and sagittal images were presented. FINDINGS: The lung bases show no infiltrate or nodule or effusion. Visualized heart shows no gross enlargement or pericardial effusion. The gastroesophageal junction is unremarkable. The abdominal and pelvic vasculature show areas of mild calcified atherosclerotic plaquing. Spleen shows no abnormal density or enhancement. Stomach, pancreas and duodenum and adrenal glands show no acute process. There is one diverticulum along the anterior aspect measuring 4.1 cm with food debris and air without obvious inflammation. There is roughly 3 to 4 mm calculus in the distal common bile duct. There is prominent dilatation of the common bile duct of 2.1 cm. There is mild intrahepatic ductal dilatation. The liver shows no abnormal enhancement or focal density. Cystectomy clips noted. The kidneys show normal enhancement without inflammation or hydronephrosis or stone. There is mildly prominent extrarenal pelvis noted bilaterally. The ureters and bladder are unremarkable. The inguinal and ischiorectal regions are unremarkable, rectum, uterus and adnexal areas are unremarkable. There is prominent diverticulosis of the distal colon without inflammation. There is mild air and stool the colon. This are unremarkable. The appendix is difficult to visualize. There is no free air, free fluid, loculated fluid, mass or lymphadenopathy noted. The subcutaneous tissues are unremarkable. Mild osteopenic changes are noted. IMPRESSION: 1. Mild intra but prominent extrahepatic ductal dilatation. There is a 3 to 4 mm calculus in the distal common bile duct which may be causing obstruction. 2. Nearby one diverticulum measuring 4.1 cm with air and debris without obvious inflammation. 3. Additional nonemergent findings as noted. CBC WITH DIFFERENTIAL Collected: 02/19/2025 4:47 PM Status: F Source: [facility] TYPE CODE TESTS RESULT OUT OF RANGE REFERENCE UNITS LAB 6690-2(LOINC) WBC # Bld Auto 12.67 High 4.80-10.80 10E3/uL LAB 789-8(LOINC) RBC # Bld Auto 4.62 4.00-6.30 10 E6/uL LAB 718-7(LOINC) Hgb Bld-mCnc 14.4 12.0-16.0 g/dL LAB 4544-3(LOINC) Hct VFr Bld Auto 41.8 37.0-47.0 % LAB 787-2(LOINC) MCV RBC Auto 90.5 80.0-100.0 fL LAB 785-6(LOINC) MCH RBC Qn Auto 31.2 High 27.0-31.0 p g LAB 786-4(LOINC) MCHC RBC Auto-mCnc 34.4 32.0-36.0 g/dL LAB 79833-8(LOINC) RDW RBC Auto 40.1 36.4-46.3 fL LAB 777-3(LOINC) Platelet # Bld Auto 310 130-400 10E3/uL LAB 95699-8(LOINC) PMV Bld Auto 9.7 9.0-13.0 fL LAB 770-8(LOINC) Neutrophils/leuk NFr Bld Auto 76.6 High 50.0-70.0 % LAB 736-9(LOINC) Lymphocytes NFr Bld Auto 16.4 Low 20.0-40.0 % LAB 5905-5(LOINC) Monocytes NFr Bld Auto 5.6 <=8.0 % LAB 713-8(LOINC) Eosinophil NFr Bld Auto 0.3 <=10.0 % LAB 706-2(LOINC) Basophils NFr Bld Auto 0.6 <=2.0 % LAB 91396-1(LOINC) Imm Granulocytes/darío k NFr Bld Auto 0.50 <=1.50 % LAB 751-8(LOINC) Neutrophils # Bld Auto 9.71 High 1.40-6.50 10E3/uL LAB 731-0(LOINC) Lymphocytes # Bld Auto 2.08 1.20-3.40 10E3/uL LAB 742-7(LOINC) Monocytes # Bld Auto 0.71 High 0.10-0.60 10E3/uL LAB 711-2(LOINC) Eosinophil # Bld Auto 0.04 <=0.70 10E3/uL LAB 704-7(LOINC) Basophils # Bld Auto 0.07 <=0.70 10E3/uL LAB 61840-2(LOINC) Imm Granulocytes # Bld Auto 0.06 <=0.10 10E3/uL LAB 771-6(LOINC) nRBC # Bld Auto 0.00 <=0.10 10E 3/uL Performed By: #### 18135-9 # ### [place] [address] Eligibility Analyst - Melva LAWRENCE [id number] LIPASE Collected: 4:47 PM Status: F Source: [facility] TYPE CODE TESTS RESULT OUT OF RANGE REFERENCE UNITS LAB LIPASES(INC) LIPASES 36 13-75 U/L Performed By: #### 96955-9, LIPASE #### [place] [address] Eligibility Analyst - Melva LAWRENCE [id number] COMPREHENSIVE METABOLIC PANEL Collected : 02/19/2025 4:47 PM Status: F Source: [facility] TYPE CODE TESTS RESULT OUT OF RANGE REFERENCE UNITS LAB 2951-2(LOINC) Sodium SerPl-sCnc 145 136-145 mmol/L LAB 2823-3(LOINC) Potassium SerPl-sCnc 3.7 3.5-5.1 mmol/L LAB 2075-0(LOINC) Chloride SerPl-sCnc 104 98-107 mmol/L LAB 2028-9(LOINC) CO2 SerPl-sCnc 27 21-32 mmol/L LAB 3094-0(INC) BUN SerPl-mCnc 12 7-17 mg/dL LAB 2160-0(LOINC) Creat SerPl-mCnc 0.78 0.51-0.95 mg/dL LAB 61906-2([facility]) GFR/BSA.pred SerPl MDRD-ArVRat >60 >=60 mL/min LAB 2345-7(INC) Glucose SerPl-mCnc 140 High 74-106 mg/dL LAB 35021-7([facility]) Calcium SerPl-mCnc 9.4 8.5-10.1 mg/dL LAB 1975-2([facility]) Bilirub SerPl-mCnc 1.5 High 0.2-1.0 mg/dL LAB 2885-2([facility]) Prot SerPl-mCnc 7.9 6.4-8.2 g/dL LAB 1751-7(INC) Albumin SerPl-mCnc 4.0 3.4-5.0 g/dL LAB 10289-1(INC) Anion Gap3 SerPl-sCnc 14.0 <=15.0 mmol/L LAB 6768-6(INC) ALP SerPl-cCnc 383 High 50-136 U/L LAB 1742-6(LOINC) ALT SerPl-cCnc 546 High 14-59 U/L LAB 1920-8(INC) AST SerPl-cCnc 722 High 15-37 U/L LAB HGFR(INC) HGFR GLOMERULAR FILTRATION RATE INTERPRETATION~Th e eGFR is calculated using the MDRD equation.~This equation has been validated in patients with chronic kidney disease;~however, it underestimates the GFR in healthy patients with GFR's over 60 mL/min.~The equation is not valid in children under the age of 18.~NOTE: Criteria for Chronic Kidney Disease:~ ~1. Kidney damage for at least three months, as defined~by structural or functional abnormalities of the kidney,~with or without decreased glomerular filtration rate, manifested by either:~* Pathological abnormalities or~* Markers of Kidney damage, including abnormalities in~the composition of the blood or urine or abnormalities in imaging tests.~ ~2. GFR <60 mL/min/1.73 m squared for at least three months, with or without kidney damage.~ Performed By: #### 73018-2, LIPASE #### [facility] [address] [place] [address] Eligibility Analyst - Melva LAWRENCE [id number] URINALYSIS WITH MICROSCOPIC Collected: 02/19/2025 4:4 7 PM Status: F Source: [facility] TYPE CODE TESTS RESULT OUT OF RANGE REFERENCE UNITS LAB 5778-6(LOINC) Color Ur Yellow YELLOW LAB 77962-0(LOINC) Clarity Ur Cloudy Abnormal CLEAR LAB 5811-5(LOINC) Sp Gr Ur Strip 1.015 1.010-1.035 LAB 5803-2(LOINC) pH Ur Strip >=9.0 High 5.5-7.5 LAB 36425-2(LOINC) Leukocyte esterase Ur-aCnc Negative TRACE LAB 5802-4(LOINC) Nitrite Ur Ql Strip Negative NEGATIVE LAB 5804-0(LOINC) Prot Ur Strip-mCnc 2+ Abnormal NEGATIVE mg/dL LAB 5792-7(LOINC) Glucose Ur Strip-mCnc Negative NEGATIVE LAB 5797-6(LOINC) Ketones Ur Strip-mCnc 1+ Abnormal NEGATIVE LAB 40049-3(LOINC) Urobilinogen Ur-aCnc <=1.0 Result Comment: 4.0 E.U./dL LAB 81210-0(LOINC) Bilirub Ur Strip-mCnc 1+ Abnormal NEGATIVE LAB 18928-4(LOINC) RBC # Ur Strip Negative NEGATIVE LAB 5821-4(LOINC) WBC #/area UrnS HPF 0-5 0-5 /hpf LAB 43420-3(LOINC) RBC #/area UrnS HPF 0-4 0-4 /hpf LAB SQUAMOUSAU(KEVIN NC) SQUAMOUS EPITHELIALS 0-5 0-5 /HPF LAB 86857-3(LOINC) Bacteria UrnS Ql Micro TRACE TRACE /hpf LAB HMICRO(LOINC) HMICRO MANUAL MICROSCOPIC* * LAB 8247-9(LOINC) Mucous Threads UrnS Ql Micro TRACE LAB 87957-0(LOINC) Squamous #/area UrnS LPF 0-5 LAB 45805-2(LOINC) Renal Epi Cells #/area UrnS HPF NONE SEEN LAB TRANS(LOINC) TRANSITIONAL EPITHEL NONE SEEN LAB 96186-1(LOINC) Coarse Gran Casts #/area UrnS LPF NONE SEEN LAB 5789-3(LOINC) Fatty Casts #/area UrnS LPF NONE SEEN LAB 83072-3(LOINC) Fine Gran Casts #/area UrnS LPF NONE SEEN LAB 5796-8(LOINC) Hyaline Casts #/area UrnS LPF 0-8 LAB 5807-3(LOINC) RBC Casts #/area UrnS LPF NONE SEEN LAB GRAN(LOINC) GRAN LAB 55425-9(LOINC) Waxy Casts UrnS Ql Micro NONE SEEN LAB 5820-6(LOINC) WBC Casts #/area UrnS LPF NONE SEEN LAB 5766-1(LOINC) Amm Urate Cry UrnS Ql Micro NONE SEEN LAB 70352-8(LOINC) Amorph Phos Cry UrnS Ql Micro NONE SEEN LAB 8246-1(LOINC) Amorph Sed UrnS Ql Micro NONE SEEN LAB 5773-7(LOINC) Ca Carbonate Cry UrnS Ql Micro NONE SEEN LAB 5774-5(LOINC) CaOx Cry UrnS Ql Micro FEW LAB 5775-2(LOINC) Ca Phos Cry UrnS Ql Micro MODERATE Abnormal NONE SEEN LAB 5777-8(LOINC) Cholest Cry UrnS Ql Micro NONE SEEN LAB 52618-2(LOINC) Cystine Cry #/area UrnS HPF NONE SEEN LAB 5795-0(LOINC) Hippurate Cry UrnS Ql Micro NONE SEEN LAB 5798-4(LOINC) Leucine Cry UrnS Ql Micro NONE SEEN LAB 664-3(LOINC) Gram Stn XXX NONE SEEN LAB 36411-8(LOINC) Starch Granules UrnS Ql Micro NONE SEEN LAB 5812-3(LOINC) Sulfonamide cry UrnS Ql Micro NONE SEEN LAB 5814-9(LOINC) Tri-Phos Cry UrnS Ql Micro NONE SEEN LAB 5815-6(LOINC) Tyrosine Cry UrnS Ql Micro NONE SEEN LAB 5817-2(LOINC) Urate Cry UrnS Ql Micro NONE SEEN LAB 98977-4(LOINC) Yeast Budding #/area UrnS HPF NONE SEEN LAB 01843-8(LOINC) Yeast pseudohyphae UrnS Ql Micro NONE SEEN Performed By: #### UAMR #### [facility] [address] [place], [place] [address] Eligibility Analyst - Melva LAWRENCE [id number] Performed for [facility] [address] [place], [place] [address] CBC WITH DIFFERENTIAL Collected: 11/30/2024 12:49 PM Status: F Source: [facility] TYPE CODE TESTS RESULT OUT OF RANGE REFERENCE UNITS LAB 6690-2(LOINC) WBC # Bld Auto 6.89 4.80-10.80 10E3/uL LAB 789-8(LOINC) RBC # Bld Auto 4.43 4.00-6.30 10 E6/uL LAB 718-7(LOINC) Hgb Bld-mCnc 13.8 12.0-16.0 g/dL LAB 4544-3(LOINC) Hct VFr Bld Auto 39.8 37.0-47.0 % LAB 787-2(LOINC) MCV RBC Auto 89.8 80.0-100.0 fL LAB 785-6(LOINC) MCH RBC Qn Auto 31.2 High 27.0-31.0 p g LAB 786-4(LOINC) MCHC RBC Auto-mCnc 34.7 32.0-36.0 g/dL LAB 71064-3(LOINC) RDW RBC Auto 41.4 36.4-46.3 fL LAB 777-3(LOINC) Platelet # Bld Auto 255 130-400 10E3/uL LAB 05253-9(LOINC) PMV Bld Auto 9.8 9.0-13.0 fL LAB 770-8(LOINC) Neutrophils/leuk NFr Bld Auto 49.5 Low 50.0-70.0 % LAB 736-9(LOINC) Lymphocytes NFr Bld Auto 39.6 20.0-40.0 % LAB 5905-5(LOINC) Monocytes NFr Bld Auto 7.8 <=8.0 % LAB 713-8(LOINC) Eosinophil NFr Bld Auto 1.9 <=10.0 % LAB 706-2(LOINC) Basophils NFr Bld Auto 0.9 <=2.0 % LAB 47471-4(LOINC) Imm Granulocytes/darío k NFr Bld Auto 0.30 <=1.50 % LAB 751-8(LOINC) Neutrophils # Bld Auto 3.41 1.40-6.50 10E3/uL LAB 731-0(LOINC) Lymphocytes # Bld Auto 2.73 1.20-3.40 10E3/uL LAB 742-7(LOINC) Monocytes # Bld Auto 0.54 0.10-0.60 10E3/uL LAB 711-2(LOINC) Eosinophil # Bld Auto 0.13 <=0.70 10E3/uL LAB 704-7(LOINC) Basophils # Bld Auto 0.06 <=0.70 10E3/uL LAB 38977-6(LOINC) Imm Granulocytes # Bld Auto 0.02 <=0.10 10E3/uL LAB 771-6([facility]) nRBC # Bld Auto 0.00 <=0.10 10E 3/uL Performed By: #### [id number] # ### [facility] [address] [place] [address] Eligibility Analyst - Melva LAWRENCE [id number] BASIC METABOLIC PANEL Collected: 2024 12:49 PM Status: F Source: [facility] TYPE CODE TESTS RESULT OUT OF RANGE REFERENCE UNITS LAB 2951-2(INC) Sodium SerPl-sCnc 142 136-145 mmol/L LAB 2823-3(LOINC) Potassium SerPl-sCnc 4.4 3.5-5.1 mmol/L LAB 2075-0(LOINC) Chloride SerPl-sCnc 108 High 98-107 mmol/L LAB 2028-9(LOINC) CO2 SerPl-sCnc 24 21-32 mmol/L LAB 3094-0(LOINC) BUN SerPl-mCnc 15 7-17 mg/dL LAB 2160-0(LOINC) Creat SerPl-mCnc 0.81 0.51-0.95 mg/dL LAB 10668-4(LOINC) GFR/BSA.pred SerPl MDRD-ArVRat >60 >=60 mL/min LAB 2345-7(LOINC) Glucose SerPl-mCnc 88 74-106 mg/dL LAB 70903-5(LOINC) Calcium SerPl-mCnc 9.1 8.5-10.1 mg/dL LAB 05562-8(LOINC) Anion Gap3 SerPl-sCnc 10.0 <=15.0 mmol/L LAB HGFR(LOINC) HGFR GLOMERULAR FILTRATION RATE INTERPRETATION~The eGFR is calculated using the MDRD equation.~This equation has been validated in patients with chronic kidney disease;~however, it underestimates the GFR in healthy patients with GFR's over 60 mL/min.~The equation is not valid in children under the age of 18.~NOTE: Criteria for Chronic Kidney Disease:~ ~1. Kidney damage for at least three months, as defined~by structural or functional abnormalities of the kidney,~with or without decreased glomerular filtration rate, manifested by either:~* Pathological abnormalities or~* Markers of Kidney damage, including abnormalities in~the composition of the blood or urine or abnormalities in imaging tests.~ ~2. GFR <60 mL/min/1.73 m squared for at least three months, with or without kidney damage.~ Performed By: #### [id number] # ### [facility] [address] [place] [address] Eligibility Analyst - Melva LAWRENCE [id number] CHEST PA Observed: 11/30/2024 7:09 AM Status: F Source: [facility] PROCEDURE: CHEST PA, 12/01/19 7:09 AM EDT CLINICAL INDICATIONS: Presurgical evaluation COMPARISON: None TECHNIQUE: PA chest 1 view FINDINGS: Heart is normal. Thoracic aortic tortuosity, mild calcified plaque is seen. Calcified left upper lobe granuloma seen. Acute consolidation, pleural effusion, or pneumothorax is not demonstrated. Acute consolidation, pleural effusion, or pneumothorax is not demonstrated. No acute osseous abnormality is seen. Regional soft tissues are unremarkable. IMPRESSION: 1. No acute cardiopulmonary pathology. 2. Prior granulomatous disease. MRI KNEE WO CONTRAST LT Observed: 2024 11:24 AM Status: F Source: [facility] EXAM: MRI KNEE WO CONTRAST L T REASON FOR EXAM: Effusion of joint of left knee. TECHNIQUE: Multiplanar, multisequence imaging of the left knee was performed without contrast COMPARISON: Radiographs 07/17/2024. FINDINGS: Laterally, the iliotibial band, fibular collateral ligament, popliteus tendon and biceps tendon are intact. The ACL is intact. Complex tear of the lateral meniscus with free edge radial tear of the lateral meniscal body propagating is horizontal femoral surface tearing into the anterior horn. Horizontal undersurface oblique tear is noted at the body posterior horn junction. No displaced meniscal fragment. Diffuse intermediate grade chondrosis of the medial compartment with marginal osteophytes in patchy areas of subchondral marrow edema cystic changes, most notable in the notch third of the lateral femoral condyle. Medially, the medial collateral ligament is intact. The PCL is intact. There is horizontal undersurface oblique tear involving the peripheral third of the body posterior horn junction the medial meniscus. There is free edge fraying/free edge radial tear of the posterior horn near the root horn attachment. No displaced meniscal fragment identified. Intermediate grade chondrosis of the medial compartment. The extensor mechanism is intact. Intermediate grade chondrosis of the patellofemoral cartilage. The bone marrow signal is without fracture. Trace effusion decompresses into a small Rosales's cyst. The regional musculature is without muscle strain or tendon tear. IMPRESSION: 1. Complex medial and lateral meniscal tears. 2. Moderate tricompartmental chondrosis. 3. Joint effusion with tiny Rosales's cyst PATELLA LEFT Observed: 07/17/2024 8:00 AM Status: F Source: [facility] PROCEDURE: PATELLA LEFT, 06/25 8:00 AM EST CLINICAL INDICATIONS: Left knee pain. COMPARISON: None. TECHNIQUE: PA standing both knees, lateral and patellar view left knee, 3 views. FINDINGS: Mild bilateral femoral-tibial, left patellofemoral osteoarthrosis noted. Osteopenia of the bony structures is noted. Acute osseous pathology is not evident. Vascular calcifications are noted. Heterotopic calcification, mild soft tissue thickening is seen anterior to the left tibial tuberosity level. IMPRESSION: 1. Bilateral osteoarthrosis. 2. Osteopenia, no acute osseous pathology. 3. Heterotopic calcification and soft tissue thickening pretibial level at the tibial tuberosity region. ALLERGIES DATE TYPE / CODE NAME / CODE REACTION SEVERITY SOURCE Drug Class/169199079(SN OMED CT) NO KNOWN ALLERGIES [facility] Drug Allergy/260682032( SNOMED CT) No Known Allergies/495770(RXNOR M) [facility] Drug Allergy/983897726( SNOMED CT) No Known Drug Allergies/561246(RXNOR M) [facility] ENCOUNTERS ADMIT/DISCHARGE ACCOUNT NUMBER ADMITTING ENCOUNTER CLASS LOCATION SOURCE 02/21/2025 [id number] PERRI DE LEON Inpatient Encounter [facility] ng:TCURoom: [id number]: 01 [facility] 02/19/2025/02/21/[id number]~[id number] CYNDIE Goff Emergency [facility] - [facility]: EMERGENCY DEPTRoom: EF1Bed: A [facility] 2025 [id number] ABNER YARN DYER~[id number] 30, ABNER RENTERIA C Ambulatory [facility] - [facility]: OUTPATIENT [facility] 12/05/2024/12/06/[id number] [facility]: AMBULATORY SURGERYRoom: [id number]: A [facility] 07/24/2024/07/25/[id number]~[id number] [facility] PAYERS ENCOUNTER GUARANTOR PAYER SUBSCRIBER SOURCE 02/19/2025 INEZ AGN: [place], [place] [address]Nwq: (HP) [facility]: [id number] leslie Date:[address] [place] [address]~ [address]: INEZ ANG: [id number] [place] [address] [facility] [address]: [place], [place] [address]Pgk: (HP) Primary Insurance:[facility] Number: [id number] leslie Date[facility] INEZ ANG: [id number] [place], [place] [address]Omf: () [facility] Insurance[facility]: [id number] leslie Date:[address], [place] [address]~[address]WP: INEZ ANG: [id number] [address] 07/24/2024 INEZ ANG: [id number] [place], [place] [address]Gpt: () [facility]: [id number] leslie Date:[address], [place] [address]~[address]: INEZ ANG: [id number] [address]
--- OUTSIDE RECORDS SUMMARY | 2025-02-21 00:46 | XMS RPT_ITS ---
Author Name Auto Generated Organization OHIP Care Team Providers Care Tubing Tester Name Role Phone NONE, NONE Consulting Unavailable NONE, NONE Primary Care Unavailable LINDA ALVARENGA, DR~[phone] CYNDIE Goff Admitting Unavailable LINDA ALVARENGA, ~[phone] CYNDEI Goff Attending Unavailable NONE, NONE Consulting Unavailable MURPHY HIGH DENSITY TALC COATER OPERATOR, JOANN Consulting Unavailab celine MURPHY HIGH DENSITY TALC COATER OPERATOR, JOANN Consulting Unavailab le CARLITO DO, MILE Consulting Unavailable SILK DO, MILE Consulting Unavailable LINDA ALVARENGA, DR CYNDIE Goff Consulting Unavaila jona MCKEON MD, DR CYNDIE Goff Consulting Unavaila ble WOOD DO, JUAN PABLO A Consulting Unavailable WOOD DO, JUAN PABLO A Consulting Unavailable NONE, NONE Primary Care Unavailable VERO ALVARENGA, DR DALAL Attending Unavail khadra PHAM MD, DR DALAL Consulting Unavail khadra PHAM MD, DR DALAL Admitting Unavail khadra PHAM MD, DR DALAL Consulting Unavail able SAMMI ALVARENGA, GALLITO Villanueva Consulting Unavailable GALLITO CHAPA MD Consulting Unavailable MARCELINO ALVARENGA, LYNNE Villanueva Consulting Unavailable LYNNE BENSON MD Consulting Unavailable [place] DIRECTOR OF STUDENT LIFE, ALYSSA N Consulting Unavailabl e [employer] DIRECTOR OF STUDENT LIFE, ALYSSA N Consulting Unavailabl e NONE, NONE Consulting Unavailable NONE, NONE Consulting Unavailable PELC, LETY P Consulting Unavailable PELC, LETY P Consulting Unavailable NONE, NONE Primary Care Unavailable LEVINE HIGH DENSITY TALC COATER OPERATOR~[phone], ABNER RENTERIA C Admit ting Unavailable LEVINE HIGH DENSITY TALC COATER OPERATOR~[phone], LEVINE AMBER C Atten ding Unavailable ABNER DELONG, MYRA C Consulting Unavailab le MYRA LEVINE Consulting Unavailable VERO ALVARENAG, ~[phone] KATLIN Admitting Unavailable VERO ALVARENGA, ~[phone] KATLIN Attending Unavailable KATLIN PHAM MD Consulting [...] DATE TYPE CONDITION / CODE ATTENDING STATUS [facility] 02/21/2025 Active Abdominal pain / R10.9(ICD-10) PERRI DE LEON Active [facility] 02/21/2025 Active Transaminitis / R74.01(ICD-10) PERRI DE LEON Active [facility] 2025 Admitting diagnosis ESSENTIAL PRIMARY HYPERTENSION / I10(ICD-10) ABNER HIGH DENSITY TALC COATER OPERATOR~[phone] , ABNER Lees Active [facility] 2025 Unknown ESSENTIAL PRIMAR Y HYPERTENSION / I10(ICD-10) ABNER HIGH DENSITY TALC COATER OPERATOR~[phone] , ABNER Lees Active [facility] 12/10/2024 Admitting diagnosis COMPLEX TEAR MM CURR LT KNEE INIT / S83.232A(ICD-10) DR KATLIN PHAM MD Active [facility] 12/10/2024 Unknown COMPLEX TEAR MM CURR LT KNEE INIT / S83.232A(ICD-10) DR KATLIN PHAM MD Active [facility] 12/10/2024 Unknown COMPLEX TEAR LM CURR LT KNEE INIT / S83.272A(ICD-10) VERO ALVARENGA DR DALAL [facility] 12/10/2024 Unknown 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) VERO ALVARENGA, DR DALAL [facility] 12/10/2024 Unknown EFFUSION LEFT KN EE / M25.462(ICD-10) VERO ALVARENGA, DR DALAL [facility] 12/10/2024 Unknown 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) VERO ALVARENGA, DR DALAL [facility] 12/10/2024 Unknown OTH ARTIC CARTLA G DIS OTH SPEC SITE / M24.19(ICD-10) VERO ALVARENGA, DR DALAL [facility] 12/10/2024 Unknown PERSONAL HISTORY OF NICOTINE DEPEND / Z87.891(ICD-10) VERO ALVARENGA, DR DALAL [facility] 12/10/2024 Unknown ENCOUNTER PREPROCEDURAL LAB EXAM / Z01.812(ICD-10) VERO ALVARENGA, DR DALAL [facility] 12/10/2024 Unknown ENCOUNTER OTHER PREPROCEDURAL EXAM / Z01.818(ICD-10) VERO ALVARENGA, DR VITALEKATLIN [facility] 07/26/2024 Admitting diagnosis EFFUSION LEFT KNEE / M25.462(ICD-10) VERO ALVARENGA, ~[id number] [facility] 07/26/2024 Unknown SYNOVIAL CYST PO P SPACE LEFT KNEE / M71.22(ICD-10) VERO ALVARENGA, ~[id number] [facility] PROCEDURES No Procedure Records Found RESULTS CBC W AUTO DIFF BLD Collected: 02/21/2025 1:[address] atus: F Source: [facility] Order Comment: Specimen Type : BLOOD SPECIMEN Ordering Facility: [facility] Address: [address] [place], [place] [id number] TYPE CODE TESTS RESULT OUT OF RANGE REFERENCE UNITS LAB 6690-2(LOINC) WBC # Bld Auto 13.40 High 3.70-11.00 k/uL LAB 789-8(LOINC) RBC # Bld Auto 3.81 Low 3.90-5.20 m/ uL LAB 718-7([facility]) Hgb Bld-mCnc 11.7 11.5-15.5 g/dL LAB 4544-3([facility]) Hct VFr Bld Auto 36.3 36.0-46.0 % LAB 787-2([facility]) MCV RBC Auto 95.3 80.0-100.0 fL LAB 785-6([facility]) MCH RBC Qn Auto 30.7 26.0-34.0 p g LAB 786-4([facility]) MCHC RBC Auto-mCnc 32.2 30.5-36.0 g/dL LAB 66685-0([facility]) RDW RBC-Rto 12.8 11.5-15.0 % LAB 777-3([facility]) Platelet # Bld Auto 228 150-400 k/uL LAB 54410-8([facility]) PMV Bld Auto 9.4 9.0-12.7 fL LAB 770-8([facility]) Neutrophils/leuk NFr Bld Auto 87.0 % LAB 751-8([facility]) Neutrophils # Bld Auto 11.64 High 1.45-7.50 k/uL LAB 736-9([facility]) Lymphocytes/leuk NFr Bld Auto 6.9 % LAB 731-0([facility]) Lymphocytes # Bld Auto 0.93 Low 1.00-4.00 k/uL LAB 5905-5([facility]) Monocytes/leuk NFr Bld Auto 5.2 % LAB 742-7([facility]) Monocytes # Bld Auto 0.70 <0.87 k/uL LAB 713-8([facility]) Eosinophil/leuk NFr Bld Auto 0.1 % LAB 711-2([facility]) Eosinophil # Bld Auto <0.03 <0.46 k/uL LAB 706-2([facility]) Basophils/leuk NFr Bld Auto 0.1 % LAB 704-7([facility]) Basophils # Bld Auto <0.03 <0.11 k/uL LAB 91961-7([facility]) Imm Granulocytes/darío k NFr Bld Auto 0.7 % LAB 08352-5([facility]) Imm Granulocytes # Bld Auto 0.10 High <0.10 k/uL LAB 01060-0([facility]) nRBC/100 WBC Bld-Rto 0.0 /100 WBC LAB 771-6([facility]) nRBC # Bld Auto <0.01 <0.01 k/u L LAB 29961-8([facility]) Differential method Bld Auto Performed By: #### 94349-0 # ### [facility] CLIA [id number] [address] DIRECT BILIRUBIN BLOOD Collected: 02/21/2025 1:21 AM Status: F Source: [facility] Order Comment: Specimen Type : BLOOD SPECIMEN Ordering Facility: [facility] Address: [address] [place] [address] TYPE CODE TESTS RESULT OUT OF RANGE REFERENCE UNITS LAB 11228-8([facility]) Bilirub Conj SerPl-mCnc 3.9 High <0.3 mg/dL Performed By: #### DBIL, 243 23-8, 85959-4, 85361-1 #### [facility] CLIA [id number] [address] COMP METAB 2000 PNL SERPL Collected: 1:21 AM Status: F Source: [facility] Order Comment: Specimen Type : BLOOD SPECIMEN Ordering Facility: [facility] Address: [address] [place] [address] TYPE CODE TESTS RESULT OUT OF RANGE REFERENCE UNITS LAB 2885-2([facility]) Prot SerPl-mCnc 6.2 Low 6.3-8.0 g/dL LAB 1751-7(INC) Albumin SerPl-mCnc 3.5 Low 3.9-4.9 g/dL LAB 53076-3(INC) Calcium SerPl-mCnc 8.5 8.5-10.2 mg/dL LAB 1975-2[facility] Bilirub SerPl-mCnc 4.8 High 0.2-1.3 mg/dL LAB 6768-6([facility]) ALP SerPl-cCnc 323 High 34-123 U/L LAB 69254-3([facility]) AST SerPl w P-5'-P-cCnc 250 High 13-35 U/L LAB 1743-4(LOINC) ALT SerPl w P-5'-P-cCnc 544 High 7-38 U/L LAB 2345-7(LOINC) Glucose SerPl-mCnc 113 High 74-99 mg/dL Result Comment: The [place] [employer] Association (ADA) provides guidance for cutoff [...] Standards of Medical Care in Diabetes 2016, [place] [employer]. Diabetes Care. 2016.39(Suppl 1). LAB 3094-0(LOINC) BUN SerPl-mCnc 12 7-21 mg/dL LAB 2160-0(LOINC) Creat SerPl-mCnc 0.69 0.58-0.96 mg/dL LAB 2951-2(LOINC) Sodium SerPl-sCnc 140 136-144 mmol/L LAB 2823-3(LOINC) Potassium SerPl-sCnc 3.9 3.7-5.1 mmol/L LAB 2075-0(LOINC) Chloride SerPl-sCnc 105 98-107 mmol/L LAB 2028-9(LOINC) CO2 SerPl-sCnc 24 22-30 mmol/L LAB 1863-0(LOINC) Anion Gap4 SerPl-sCnc 11 8-15 mmol/L LAB 09730-3(LOINC) eGFRcr SerPlBld CKD-EPI 2020 96 >=60 mL/min/1. [...] GFR. Performed By: #### DBIL, 243 23-8, 67668-8, 47869-2 #### [facility] CLIA [id number] [address] MAGNESIUM SERPL-MCNC Collected: 02/21/2025 1:21 AM S tatus: F Source: [facility] Order Comment: Specimen Type : BLOOD SPECIMEN Ordering Facility: [facility] Address: [address] [place] [address] TYPE CODE TESTS RESULT OUT OF RANGE REFERENCE UNITS LAB 59518-9(LOINC) Magnesium SerPl-mCnc 2.1 1.7-2.3 mg/dL Performed By: #### DBIL, 243 23-8, 93546-7, 50584-9 #### [facility] CLIA [id number] [address] PROCALCITONIN SERPL-MCNC Collected: 02/21/2025 1:21 A M Status: F Source: [facility] Order Comment: Specimen Type : BLOOD SPECIMEN Ordering Facility: [facility] Address: [address] [place] [address] TYPE CODE TESTS RESULT OUT OF RANGE REFERENCE UNITS LAB 65837-7(LOINC) Procalcitonin SerPl-mCnc 1.07 High <0.09 ng/mL Result Comment: For a guided interpretation of test results, please visit the Change in Procalcitonin Calculator, [email or web address]. Performed By: #### DBIL, 243 23-8, 49326-5, 25643-2 #### [facility] CLIA [id number] [address] OF [place] LACTATE Collected: 10:14 PM Status: F Source: [facility] TYPE CODE TESTS RESULT OUT OF RANGE REFERENCE UNITS LAB LACTICWB(LOINC) LACTIC ACID 1.3 0.4-2.0 mmol /L Performed By: #### 2524-7 ## ## [facility] [address] [place] [address] Polymerization Engineer - Melva Garcia CLIA [id number] BILIRUBIN DIRECT Collected: 02/19/2025 6:31 PM Statu s: F Source: [facility] TYPE CODE TESTS RESULT OUT OF RANGE REFERENCE UNITS LAB 47169-7(LOINC) Bilirub Conj SerPl-mCnc 1.0 High <=0.2 mg/dL Performed By: #### 96132-8 # ### [facility] [address] [place], [place] [address] Polymerization [facility] [id number] LACTATE Collected: 6:31 PM Status: F Source: [facility] TYPE CODE TESTS RESULT OUT OF RANGE REFERENCE UNITS LAB LACTICWB(LOINC) LACTIC ACID 1.5 0.4-2.0 mmol /L Performed By: #### 2524-7 ## ## [facility] [address] [place], [place] [address] Polymerization Engineer - [facility] [id number] CT ABDOMEN AND PELVIS WITH CONTRAST Observed: 02/19/2025 6:16 PM Status: F Source: [facility] EXAMINATION: CT ABDOMEN AND PELVIS WITH [...] Collected: 02/19/2025 4:47 PM Status: F Source: [facility] TYPE CODE TESTS RESULT OUT OF [...] MCHC RBC Auto-mCnc 34.4 32.0-36.0 g/dL LAB 55953-7(LOINC) RDW RBC Auto 40.1 36.4-46.3 fL LAB 777-3(LOINC) Platelet # Bld Auto 310 130-400 10E3/uL LAB 37821-1(LOINC) PMV Bld Auto 9.7 9.0-13.0 fL LAB 770-8(LOINC) Neutrophils/leuk NFr Bld Auto 76.6 High 50.0-70.0 % LAB 736-9(LOINC) Lymphocytes NFr Bld Auto 16.4 Low 20.0-40.0 % LAB 5905-5(LOINC) Monocytes NFr Bld Auto 5.6 <=8.0 % LAB 713-8(LOINC) Eosinophil NFr Bld Auto 0.3 <=10.0 % LAB 706-2(LOINC) Basophils NFr Bld Auto 0.6 <=2.0 % LAB 03616-0(LOINC) Imm Granulocytes/darío k NFr Bld Auto 0.50 <=1.50 % LAB 751-8(LOINC) Neutrophils # Bld Auto 9.71 High 1.40-6.50 10E3/uL LAB 731-0(LOINC) Lymphocytes # Bld Auto 2.08 1.20-3.40 10E3/uL LAB 742-7(LOINC) Monocytes # Bld Auto 0.71 High 0.10-0.60 10E3/uL LAB 711-2(LOINC) Eosinophil # Bld Auto 0.04 <=0.70 10E3/uL LAB 704-7(LOINC) Basophils # Bld Auto 0.07 <=0.70 10E3/uL LAB 55180-0(LOINC) Imm Granulocytes # Bld Auto 0.06 <=0.10 10E3/uL LAB 771-6(LOINC) nRBC # Bld Auto 0.00 <=0.10 10E 3/uL Performed By: #### 22185-7 # ### [place] [address] Polymerization Engineer - Melva LAWRENCE [id number] LIPASE Collected: 4:47 PM Status: F Source: [facility] TYPE CODE TESTS RESULT OUT OF RANGE REFERENCE UNITS LAB LIPASES(INC) LIPASES 36 13-75 U/L Performed By: #### 14464-5, LIPASE #### [place] [address] Polymerization Engineer - Melva LAWRENCE [id number] COMPREHENSIVE METABOLIC PANEL Collected : 02/19/2025 4:47 PM Status: F Source: [facility] TYPE CODE TESTS RESULT OUT OF RANGE REFERENCE UNITS LAB 2951-2(LOINC) Sodium SerPl-sCnc 145 136-145 mmol/L LAB 2823-3(LOINC) Potassium SerPl-sCnc 3.7 3.5-5.1 mmol/L LAB 2075-0(LOINC) Chloride SerPl-sCnc 104 98-107 mmol/L LAB 2028-9(LOINC) CO2 SerPl-sCnc 27 21-32 mmol/L LAB 3094-0(INC) BUN SerPl-mCnc 12 7-17 mg/dL LAB 2160-0(LOINC) Creat SerPl-mCnc 0.78 0.51-0.95 mg/dL LAB 58485-6([facility]) GFR/BSA.pred SerPl MDRD-ArVRat >60 >=60 mL/min LAB 2345-7(INC) Glucose SerPl-mCnc 140 High 74-106 mg/dL LAB 42557-4([facility]) Calcium SerPl-mCnc 9.4 8.5-10.1 mg/dL LAB 1975-2([facility]) Bilirub SerPl-mCnc 1.5 High 0.2-1.0 mg/dL LAB 2885-2([facility]) Prot SerPl-mCnc 7.9 6.4-8.2 g/dL LAB 1751-7(INC) Albumin SerPl-mCnc 4.0 3.4-5.0 g/dL LAB 96353-0(INC) Anion Gap3 SerPl-sCnc 14.0 <=15.0 mmol/L LAB [...] or without kidney damage.~ Performed By: #### 59601-6, LIPASE #### [facility] [address] [place] [address] Polymerization Engineer - Melva LAWRENCE [id number] URINALYSIS WITH MICROSCOPIC Collected: 02/19/2025 4:4 7 PM Status: F Source: [facility] TYPE CODE TESTS RESULT OUT OF RANGE REFERENCE UNITS LAB 5778-6(LOINC) Color Ur Yellow YELLOW LAB 12110-0(LOINC) Clarity Ur Cloudy Abnormal CLEAR LAB 5811-5(LOINC) Sp Gr Ur Strip 1.015 1.010-1.035 LAB 5803-2(LOINC) pH Ur Strip >=9.0 High 5.5-7.5 LAB 43505-0(LOINC) Leukocyte esterase Ur-aCnc Negative TRACE LAB 5802-4(LOINC) Nitrite Ur Ql Strip Negative NEGATIVE LAB 5804-0(LOINC) Prot Ur Strip-mCnc 2+ Abnormal NEGATIVE mg/dL LAB 5792-7(LOINC) Glucose Ur Strip-mCnc Negative NEGATIVE LAB 5797-6(LOINC) Ketones Ur Strip-mCnc 1+ Abnormal NEGATIVE LAB 70068-9(LOINC) Urobilinogen Ur-aCnc <=1.0 Result Comment: 4.0 E.U./dL LAB 81006-0(LOINC) Bilirub Ur Strip-mCnc 1+ Abnormal NEGATIVE LAB 19474-2(LOINC) RBC # Ur Strip Negative NEGATIVE LAB 5821-4(LOINC) WBC #/area UrnS HPF 0-5 0-5 /hpf LAB 80317-7(LOINC) RBC #/area UrnS HPF 0-4 0-4 /hpf LAB SQUAMOUSAU(KEVIN NC) SQUAMOUS EPITHELIALS 0-5 0-5 /HPF LAB 09074-6(LOINC) Bacteria UrnS Ql Micro TRACE TRACE /hpf LAB HMICRO(LOINC) HMICRO MANUAL MICROSCOPIC* * LAB 8247-9(LOINC) Mucous Threads UrnS Ql Micro TRACE LAB 62486-2(LOINC) Squamous #/area UrnS LPF 0-5 LAB 35544-3(LOINC) Renal Epi Cells #/area UrnS HPF NONE SEEN LAB TRANS(LOINC) TRANSITIONAL EPITHEL NONE SEEN LAB 00664-1(LOINC) Coarse Gran Casts #/area UrnS LPF NONE SEEN LAB 5789-3(LOINC) Fatty Casts #/area UrnS LPF NONE SEEN LAB 43650-5(LOINC) Fine Gran Casts #/area UrnS LPF NONE SEEN LAB 5796-8(LOINC) Hyaline Casts #/area UrnS LPF 0-8 LAB 5807-3(LOINC) RBC Casts #/area UrnS LPF NONE SEEN LAB GRAN(LOINC) GRAN LAB 40145-6(LOINC) Waxy Casts UrnS Ql Micro NONE SEEN LAB 5820-6(LOINC) WBC Casts #/area UrnS LPF NONE SEEN LAB 5766-1(LOINC) Amm Urate Cry UrnS Ql Micro NONE SEEN LAB 28039-4(LOINC) Amorph Phos Cry UrnS Ql Micro NONE SEEN LAB 8246-1(LOINC) Amorph Sed UrnS Ql Micro NONE SEEN LAB 5773-7(LOINC) Ca Carbonate Cry UrnS Ql Micro NONE SEEN LAB 5774-5(LOINC) CaOx Cry UrnS Ql Micro FEW LAB 5775-2(LOINC) Ca Phos Cry UrnS Ql Micro MODERATE Abnormal NONE SEEN LAB 5777-8(LOINC) Cholest Cry UrnS Ql Micro NONE SEEN LAB 43069-2(LOINC) Cystine Cry #/area UrnS HPF NONE SEEN LAB 5795-0(LOINC) Hippurate Cry UrnS Ql Micro NONE SEEN LAB 5798-4(LOINC) Leucine Cry UrnS Ql Micro NONE SEEN LAB 664-3(LOINC) Gram Stn XXX NONE SEEN LAB 21687-2(LOINC) Starch Granules UrnS Ql Micro NONE SEEN LAB 5812-3(LOINC) Sulfonamide cry UrnS Ql Micro NONE SEEN LAB 5814-9(LOINC) Tri-Phos Cry UrnS Ql Micro NONE SEEN LAB 5815-6(LOINC) Tyrosine Cry UrnS Ql Micro NONE SEEN LAB 5817-2(LOINC) Urate Cry UrnS Ql Micro NONE SEEN LAB 63898-6(LOINC) Yeast Budding #/area UrnS HPF NONE SEEN LAB 60010-5(LOINC) Yeast pseudohyphae UrnS Ql Micro NONE SEEN Performed By: #### UAMR #### [facility] [address] [place], [place] [address] Polymerization Engineer - Melva LAWRENCE [id number] Performed for [facility] [address] [place], [place] [address] CBC WITH DIFFERENTIAL Collected: 11/30/2024 12:49 PM Status: F Source: [facility] TYPE CODE TESTS RESULT OUT OF [...] MCHC RBC Auto-mCnc 34.7 32.0-36.0 g/dL LAB 95048-8(LOINC) RDW RBC Auto 41.4 36.4-46.3 fL LAB 777-3(LOINC) Platelet # Bld Auto 255 130-400 10E3/uL LAB 03762-4(LOINC) PMV Bld Auto 9.8 9.0-13.0 fL LAB 770-8(LOINC) Neutrophils/leuk NFr Bld Auto 49.5 Low 50.0-70.0 % LAB 736-9(LOINC) Lymphocytes NFr Bld Auto 39.6 20.0-40.0 % LAB 5905-5(LOINC) Monocytes NFr Bld Auto 7.8 <=8.0 % LAB 713-8(LOINC) Eosinophil NFr Bld Auto 1.9 <=10.0 % LAB 706-2(LOINC) Basophils NFr Bld Auto 0.9 <=2.0 % LAB 87446-0(LOINC) Imm Granulocytes/darío k NFr Bld Auto 0.30 <=1.50 % LAB 751-8(LOINC) Neutrophils # Bld Auto 3.41 1.40-6.50 10E3/uL LAB 731-0(LOINC) Lymphocytes # Bld Auto 2.73 1.20-3.40 10E3/uL LAB 742-7(LOINC) Monocytes # Bld Auto 0.54 0.10-0.60 10E3/uL LAB 711-2(LOINC) Eosinophil # Bld Auto 0.13 <=0.70 10E3/uL LAB 704-7(LOINC) Basophils # Bld Auto 0.06 <=0.70 10E3/uL LAB 09697-5(LOINC) Imm Granulocytes # Bld Auto 0.02 <=0.10 10E3/uL LAB 771-6([facility]) nRBC # Bld Auto 0.00 <=0.10 10E 3/uL Performed By: #### 33495-6 # ### [facility] [address] [place] [address] Polymerization Engineer - Melva LAWRENCE [id number] BASIC METABOLIC PANEL Collected: 2024 12:49 PM Status: F Source: [facility] TYPE CODE TESTS RESULT OUT OF RANGE REFERENCE UNITS LAB 2951-2(INC) Sodium SerPl-sCnc 142 136-145 mmol/L LAB 2823-3(LOINC) Potassium SerPl-sCnc 4.4 3.5-5.1 mmol/L LAB 2075-0(LOINC) Chloride SerPl-sCnc 108 High 98-107 mmol/L LAB 2028-9(LOINC) CO2 SerPl-sCnc 24 21-32 mmol/L LAB 3094-0(LOINC) BUN SerPl-mCnc 15 7-17 mg/dL LAB 2160-0(LOINC) Creat SerPl-mCnc 0.81 0.51-0.95 mg/dL LAB 97419-2(LOINC) GFR/BSA.pred SerPl MDRD-ArVRat >60 >=60 mL/min LAB 2345-7(LOINC) Glucose SerPl-mCnc 88 74-106 mg/dL LAB 37578-7(LOINC) Calcium SerPl-mCnc 9.1 8.5-10.1 mg/dL LAB 45950-5(LOINC) Anion Gap3 SerPl-sCnc 10.0 <=15.0 mmol/L LAB [...] or without kidney damage.~ Performed By: #### 40324-5 # ### [facility] [address] [place] [address] Polymerization Engineer - Melva LAWRENCE [id number] CHEST PA Observed: 11/30/2024 7:09 AM Status: F Source: [facility] PROCEDURE: CHEST PA, 12/01/19 7:09 AM [...] Observed: 2024 11:24 AM Status: F Source: [facility] EXAM: MRI KNEE WO CONTRAST L [...] Observed: 07/17/2024 8:00 AM Status: F Source: [facility] PROCEDURE: PATELLA LEFT, 06/25 8:00 AM [...] NAME / CODE REACTION SEVERITY SOURCE Drug Class/319583143(SN OMED CT) NO KNOWN ALLERGIES [facility] Drug Allergy/907899083( SNOMED CT) No Known Allergies/533470(RXNOR M) [facility] Drug Allergy/967991821( SNOMED CT) No Known Drug Allergies/580659(RXNOR M) [facility] ENCOUNTERS ADMIT/DISCHARGE ACCOUNT NUMBER ADMITTING ENCOUNTER CLASS LOCATION SOURCE 02/21/2025 [id number] PERRI DE LEON Inpatient Encounter [facility] ng:TCURoom: 3211Bed: 01 [facility] 02/19/2025/02/21/[id number]~[id number] CYNDIE Goff Emergency [facility] LiveBuilding: EMERGENCY DEPTRoom: EF1Bed: A [facility] 2025 [id number] 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 30, ABNER RENTERIA C Ambulatory [facility]: OUTPATIENT [facility] 12/05/2024/12/06/[id number] WINIFRED PHAM MDNETH [facility] - LiveBuilding: AMBULATORY SURGERYRoom: TJ84Hhw: A [facility] 07/24/2024/07/25/[id number]~[id number] [facility] PAYERS ENCOUNTER GUARANTOR PAYER SUBSCRIBER SOURCE 02/19/2025 INEZ ANG: [place], [place] [address]Ypm: (HP) [facility]: [id number] leslie Date:[address] [place] [address]~ [address]: INEZ ANG: [id number] [place] [address] [facility] [address]: [place], [place] [address]Zeh: (HP) Primary Insurance:[facility] Number: [id number] leslie Date[facility] INEZ ANG: [id number] [place], [place] [address]Zsp: () [facility] Number: [id number] leslie Date:[address] [address]~[address]WP: INEZ ANG: [id number] [address] 07/24/2024 INEZ ANG: [id number] [place], [place] [address]Aws: () [facility]: [id number] leslie Date:[address], [place] [address]~[address]: INEZ ANG: [id number] [address]
--- OUTSIDE RECORDS SUMMARY | 2025-02-21 00:46 | XMS RPT_ITS ---
Author Name Auto Generated Organization OHIP Care Team Providers Care Die Press Operator Name Role Phone NONE, NONE Consulting Unavailable NONE, NONE Primary Care Unavailable LINDA ALVARENGA, DR~[phone] CYNDIE Goff Admitting Unavailable LINDA ALVARENGA, ~[phone] CYNDIE Goff Attending Unavailable NONE, NONE Consulting Unavailable MURPHY SKIP LOAD DRIVER, JOANN Consulting Unavailab celine MURPHY SKIP LOAD DRIVER, JOANN Consulting Unavailab le CARLITO DO, MILE [...] Unavailable LYNNE BENSON MD Consulting Unavailable [place] DOORPERSON OR LUGGAGE PORTER, ALYSSA N Consulting Unavailabl e [employer] DOORPERSON OR LUGGAGE PORTER, ALYSSA N Consulting Unavailabl e NONE, NONE Consulting Unavailable NONE, NONE Consulting Unavailable PELC, LETY P Consulting Unavailable PELC, LETY P Consulting Unavailable NONE, NONE Primary Care Unavailable LEVINE SKIP LOAD DRIVER~[phone], ABNER RENTERIA C Admit ting Unavailable LEVINE SKIP LOAD DRIVER~[phone], LEVINE AMBER C Atten ding Unavailable ABNER DELONG, MYRA C Consulting Unavailab le MYRA LEVINE Consulting Unavailable VERO ALVARENGA, ~[phone] KATLIN Admitting Unavailable VERO ALVARENGA, ~[phone] KATLIN Attending Unavailable KATLIN PHAM MD Consulting [...] DATE TYPE CONDITION / CODE ATTENDING STATUS [facility] 02/21/2025 Active Abdominal pain / R10.9(ICD-10) PERRI DE LEON Active [facility] 02/21/2025 Active Transaminitis / R74.01(ICD-10) PERRI DE LEON Active [facility] 2025 Admitting diagnosis ESSENTIAL PRIMARY HYPERTENSION / I10(ICD-10) ABNER SKIP LOAD DRIVER~[phone] , ABNER Lees Active [facility] 2025 Unknown ESSENTIAL PRIMAR Y HYPERTENSION / I10(ICD-10) ABNER SKIP LOAD DRIVER~[phone] , ABNER Lees Active [facility] 12/10/2024 Admitting diagnosis COMPLEX TEAR MM CURR LT KNEE INIT / S83.232A(ICD-10) DR KATLIN PHAM MD Active [facility] 12/10/2024 Unknown COMPLEX TEAR MM CURR LT KNEE INIT / S83.232A(ICD-10) DR KATLIN PHAM MD Active [facility] 12/10/2024 Unknown COMPLEX TEAR LM CURR LT KNEE INIT / S83.272A(ICD-10) VERO ALVARENGA DR DALAL 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 12/10/2024 Unknown EFFUSION LEFT KN EE / M25.462(ICD-10) VERO ALVARENGA, DR DALAL 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 12/10/2024 Unknown OTH ARTIC CARTLA G DIS OTH SPEC SITE / M24.19(ICD-10) VERO ALVARENGA, DR DALAL [facility] 12/10/2024 Unknown PERSONAL HISTORY OF NICOTINE DEPEND / Z87.891(ICD-10) VERO ALVARENGA, DR DALAL [facility] 12/10/2024 Unknown ENCOUNTER PREPROCEDURAL LAB EXAM / Z01.812(ICD-10) VERO ALVARENGA, DR DALAL [facility] 12/10/2024 Unknown ENCOUNTER OTHER PREPROCEDURAL EXAM / Z01.818(ICD-10) VERO ALVARENGA, DR VITALEKATLIN [facility] 07/26/2024 Admitting diagnosis EFFUSION LEFT KNEE / M25.462(ICD-10) VERO ALVARENGA, ~[id number] [facility] 07/26/2024 Unknown SYNOVIAL CYST PO P SPACE LEFT KNEE / M71.22(ICD-10) VERO ALVARENGA, ~[id number] [facility] PROCEDURES No Procedure Records Found RESULTS CBC W AUTO DIFF BLD Collected: 02/21/2025 1:[address] atus: F Source: [facility] Order Comment: Specimen Type : BLOOD SPECIMEN Ordering Facility: [facility] Address: [address] [place], [place] [address] TYPE CODE TESTS RESULT OUT OF RANGE REFERENCE UNITS LAB 6690-2(LOINC) WBC # Bld Auto 13.40 High 3.70-11.00 k/uL LAB 789-8(LOINC) RBC # Bld Auto 3.81 Low 3.90-5.20 m/ uL LAB 718-7([facility]) Hgb Bld-mCnc 11.7 11.5-15.5 g/dL LAB 4544-3([facility]) Hct VFr Bld Auto 36.3 36.0-46.0 % LAB 787-2([facility]) MCV RBC Auto 95.3 80.0-100.0 fL LAB 785-6([facility]) MCH RBC Qn Auto 30.7 26.0-34.0 p g LAB 786-4([facility]) MCHC RBC Auto-mCnc 32.2 30.5-36.0 g/dL LAB 00644-3([facility]) RDW RBC-Rto 12.8 11.5-15.0 % LAB 777-3([facility]) Platelet # Bld Auto 228 150-400 k/uL LAB 53712-6([facility]) PMV Bld Auto 9.4 9.0-12.7 fL LAB 770-8([facility]) Neutrophils/leuk NFr Bld Auto 87.0 % LAB 751-8([facility]) Neutrophils # Bld Auto 11.64 High 1.45-7.50 k/uL LAB 736-9([facility]) Lymphocytes/leuk NFr Bld Auto 6.9 % LAB 731-0([facility]) Lymphocytes # Bld Auto 0.93 Low 1.00-4.00 k/uL LAB 5905-5([facility]) Monocytes/leuk NFr Bld Auto 5.2 % LAB 742-7([facility]) Monocytes # Bld Auto 0.70 <0.87 k/uL LAB 713-8([facility]) Eosinophil/leuk NFr Bld Auto 0.1 % LAB 711-2([facility]) Eosinophil # Bld Auto <0.03 <0.46 k/uL LAB 706-2([facility]) Basophils/leuk NFr Bld Auto 0.1 % LAB 704-7([facility]) Basophils # Bld Auto <0.03 <0.11 k/uL LAB 97624-8([facility]) Imm Granulocytes/darío k NFr Bld Auto 0.7 % LAB 78678-3([facility]) Imm Granulocytes # Bld Auto 0.10 High <0.10 k/uL LAB 32775-3([facility]) nRBC/100 WBC Bld-Rto 0.0 /100 WBC LAB 771-6([facility]) nRBC # Bld Auto <0.01 <0.01 k/u L LAB 08902-8([facility]) Differential method Bld Auto Performed By: #### 76837-8 # ### [facility] CLIA [id number] [address] DIRECT BILIRUBIN BLOOD Collected: 02/21/2025 1:21 AM Status: F Source: [facility] Order Comment: Specimen Type : BLOOD SPECIMEN Ordering Facility: [facility] Address: [address] [place] [address] TYPE CODE TESTS RESULT OUT OF RANGE REFERENCE UNITS LAB 14346-9([facility]) Bilirub Conj SerPl-mCnc 3.9 High <0.3 mg/dL Performed By: #### DBIL, 243 23-8, 03683-1, 87626-4 #### [facility] CLIA [id number] [address] COMP METAB 2000 PNL SERPL Collected: 1:21 AM Status: F Source: [facility] Order Comment: Specimen Type : BLOOD SPECIMEN Ordering Facility: [facility] Address: [address] [place] [address] TYPE CODE TESTS RESULT OUT OF RANGE REFERENCE UNITS LAB 2885-2([facility]) Prot SerPl-mCnc 6.2 Low 6.3-8.0 g/dL LAB 1751-7(INC) Albumin SerPl-mCnc 3.5 Low 3.9-4.9 g/dL LAB 98967-9(INC) Calcium SerPl-mCnc 8.5 8.5-10.2 mg/dL LAB 1975-2([facility]) Bilirub SerPl-mCnc 4.8 High 0.2-1.3 mg/dL LAB 6768-6([facility]) ALP SerPl-cCnc 323 High 34-123 U/L LAB 89430-8([facility]) AST SerPl w P-5'-P-cCnc 250 High 13-35 U/L LAB 1743-4(LOINC) ALT SerPl w P-5'-P-cCnc 544 High 7-38 U/L LAB 2345-7(LOINC) Glucose SerPl-mCnc 113 High 74-99 mg/dL Result Comment: The [place] [employer] (ADA) provides guidance for cutoff [...] Standards of Medical Care in Diabetes 2016, [place] [employer]. Diabetes Care. 2016.39(Suppl 1). LAB 3094-0(LOINC) BUN SerPl-mCnc 12 7-21 mg/dL LAB 2160-0(LOINC) Creat SerPl-mCnc 0.69 0.58-0.96 mg/dL LAB 2951-2(LOINC) Sodium SerPl-sCnc 140 136-144 mmol/L LAB 2823-3(LOINC) Potassium SerPl-sCnc 3.9 3.7-5.1 mmol/L LAB 2075-0(LOINC) Chloride SerPl-sCnc 105 98-107 mmol/L LAB 2028-9(LOINC) CO2 SerPl-sCnc 24 22-30 mmol/L LAB 1863-0(LOINC) Anion Gap4 SerPl-sCnc 11 8-15 mmol/L LAB 61719-0(LOINC) eGFRcr SerPlBld CKD-EPI 2020 96 >=60 mL/min/1. [...] GFR. Performed By: #### DBIL, 243 23-8, 39160-1, 09109-9 #### [facility] CLIA [id number] [address] MAGNESIUM SERPL-MCNC Collected: 02/21/2025 1:21 AM S tatus: F Source: [facility] Order Comment: Specimen Type : BLOOD SPECIMEN Ordering Facility: [facility] Address: [address] [place] [address] TYPE CODE TESTS RESULT OUT OF RANGE REFERENCE UNITS LAB 31303-4(LOINC) Magnesium SerPl-mCnc 2.1 1.7-2.3 mg/dL Performed By: #### DBIL, 243 23-8, 62196-6, 80803-9 #### [facility] CLIA [id number] [address] PROCALCITONIN SERPL-MCNC Collected: 02/21/2025 1:21 A M Status: F Source: [facility] Order Comment: Specimen Type : BLOOD SPECIMEN Ordering Facility: [facility] Address: [address] [place] [address] TYPE CODE TESTS RESULT OUT OF RANGE REFERENCE UNITS LAB 56934-2(LOINC) Procalcitonin SerPl-mCnc 1.07 High <0.09 ng/mL Result Comment: For a guided interpretation of test results, please visit the Change in Procalcitonin Calculator, [email or web address]. Performed By: #### DBIL, 243 23-8, 91459-6, 71620-3 #### [facility] CLIA [id number] [address] OF [place] LACTATE Collected: 10:14 PM Status: F Source: [facility] TYPE CODE TESTS RESULT OUT OF RANGE REFERENCE UNITS LAB LACTICWB(LOINC) LACTIC ACID 1.3 0.4-2.0 mmol /L Performed By: #### 2524-7 ## ## [facility] [address] [place] [address] Byproducts Pump Operator - Melva Garcia CLIA [id number] BILIRUBIN DIRECT Collected: 02/19/2025 6:31 PM Statu s: F Source: [facility] TYPE CODE TESTS RESULT OUT OF RANGE REFERENCE UNITS LAB 07538-6(LOINC) Bilirub Conj SerPl-mCnc 1.0 High <=0.2 mg/dL Performed By: #### 70420-5 # ### [facility] [address] [place], [place] [address] Byproducts Pump Operator [id number] LACTATE Collected: 6:31 PM Status: F Source: [facility] TYPE CODE TESTS RESULT OUT OF RANGE REFERENCE UNITS LAB LACTICWB(LOINC) LACTIC ACID 1.5 0.4-2.0 mmol /L Performed By: #### 2524-7 ## ## [facility] [address] [place], [place] [address] Byproducts Pump Operator - [facility] [id number] CT ABDOMEN AND PELVIS WITH CONTRAST Observed: 02/19/2025 6:16 PM Status: F Source: [facility] EXAMINATION: CT ABDOMEN AND PELVIS WITH CONTRAST, [...] Collected: 02/19/2025 4:47 PM Status: F Source: [facility] TYPE CODE TESTS RESULT OUT OF RANGE [...] MCHC RBC Auto-mCnc 34.4 32.0-36.0 g/dL LAB 27831-7(LOINC) RDW RBC Auto 40.1 36.4-46.3 fL LAB 777-3(LOINC) Platelet # Bld Auto 310 130-400 10E3/uL LAB 13831-5(LOINC) PMV Bld Auto 9.7 9.0-13.0 fL LAB 770-8(LOINC) Neutrophils/leuk NFr Bld Auto 76.6 High 50.0-70.0 % LAB 736-9(LOINC) Lymphocytes NFr Bld Auto 16.4 Low 20.0-40.0 % LAB 5905-5(LOINC) Monocytes NFr Bld Auto 5.6 <=8.0 % LAB 713-8(LOINC) Eosinophil NFr Bld Auto 0.3 <=10.0 % LAB 706-2(LOINC) Basophils NFr Bld Auto 0.6 <=2.0 % LAB 43682-6(LOINC) Imm Granulocytes/darío k NFr Bld Auto 0.50 <=1.50 % LAB 751-8(LOINC) Neutrophils # Bld Auto 9.71 High 1.40-6.50 10E3/uL LAB 731-0(LOINC) Lymphocytes # Bld Auto 2.08 1.20-3.40 10E3/uL LAB 742-7(LOINC) Monocytes # Bld Auto 0.71 High 0.10-0.60 10E3/uL LAB 711-2(LOINC) Eosinophil # Bld Auto 0.04 <=0.70 10E3/uL LAB 704-7(LOINC) Basophils # Bld Auto 0.07 <=0.70 10E3/uL LAB 18123-7(LOINC) Imm Granulocytes # Bld Auto 0.06 <=0.10 10E3/uL LAB 771-6(LOINC) nRBC # Bld Auto 0.00 <=0.10 10E 3/uL Performed By: #### 65251-4 # ### [place] [address] Byproducts Pump Operator - Melva LAWRENCE [id number] LIPASE Collected: 4:47 PM Status: F Source: [facility] TYPE CODE TESTS RESULT OUT OF RANGE REFERENCE UNITS LAB LIPASES(INC) LIPASES 36 13-75 U/L Performed By: #### 62955-6, LIPASE #### [place] [address] Byproducts Pump Operator - Melva LAWRENCE [id number] COMPREHENSIVE METABOLIC PANEL Collected : 02/19/2025 4:47 PM Status: F Source: [facility] TYPE CODE TESTS RESULT OUT OF RANGE REFERENCE UNITS LAB 2951-2(LOINC) Sodium SerPl-sCnc 145 136-145 mmol/L LAB 2823-3(LOINC) Potassium SerPl-sCnc 3.7 3.5-5.1 mmol/L LAB 2075-0(LOINC) Chloride SerPl-sCnc 104 98-107 mmol/L LAB 2028-9(LOINC) CO2 SerPl-sCnc 27 21-32 mmol/L LAB 3094-0(INC) BUN SerPl-mCnc 12 7-17 mg/dL LAB 2160-0(LOINC) Creat SerPl-mCnc 0.78 0.51-0.95 mg/dL LAB 62982-0([facility]) GFR/BSA.pred SerPl MDRD-ArVRat >60 >=60 mL/min LAB 2345-7(INC) Glucose SerPl-mCnc 140 High 74-106 mg/dL LAB 36729-8([facility]) Calcium SerPl-mCnc 9.4 8.5-10.1 mg/dL LAB 1975-2([facility]) Bilirub SerPl-mCnc 1.5 High 0.2-1.0 mg/dL LAB 2885-2([facility]) Prot SerPl-mCnc 7.9 6.4-8.2 g/dL LAB 1751-7(INC) Albumin SerPl-mCnc 4.0 3.4-5.0 g/dL LAB 17100-5(INC) Anion Gap3 SerPl-sCnc 14.0 <=15.0 mmol/L LAB [...] or without kidney damage.~ Performed By: #### 06056-1, LIPASE #### [facility] [address] [place] [address] Byproducts Pump Operator - Melva LAWRENCE [id number] URINALYSIS WITH MICROSCOPIC Collected: 02/19/2025 4:4 7 PM Status: F Source: [facility] TYPE CODE TESTS RESULT OUT OF RANGE REFERENCE UNITS LAB 5778-6(LOINC) Color Ur Yellow YELLOW LAB 24575-3(LOINC) Clarity Ur Cloudy Abnormal CLEAR LAB 5811-5(LOINC) Sp Gr Ur Strip 1.015 1.010-1.035 LAB 5803-2(LOINC) pH Ur Strip >=9.0 High 5.5-7.5 LAB 45473-2(LOINC) Leukocyte esterase Ur-aCnc Negative TRACE LAB 5802-4(LOINC) Nitrite Ur Ql Strip Negative NEGATIVE LAB 5804-0(LOINC) Prot Ur Strip-mCnc 2+ Abnormal NEGATIVE mg/dL LAB 5792-7(LOINC) Glucose Ur Strip-mCnc Negative NEGATIVE LAB 5797-6(LOINC) Ketones Ur Strip-mCnc 1+ Abnormal NEGATIVE LAB 43035-2(LOINC) Urobilinogen Ur-aCnc <=1.0 Result Comment: 4.0 E.U./dL LAB 37663-7(LOINC) Bilirub Ur Strip-mCnc 1+ Abnormal NEGATIVE LAB 09564-1(LOINC) RBC # Ur Strip Negative NEGATIVE LAB 5821-4(LOINC) WBC #/area UrnS HPF 0-5 0-5 /hpf LAB 52501-5(LOINC) RBC #/area UrnS HPF 0-4 0-4 /hpf LAB SQUAMOUSAU(KEVIN NC) SQUAMOUS EPITHELIALS 0-5 0-5 /HPF LAB 98407-8(LOINC) Bacteria UrnS Ql Micro TRACE TRACE /hpf LAB HMICRO(LOINC) HMICRO MANUAL MICROSCOPIC* * LAB 8247-9(LOINC) Mucous Threads UrnS Ql Micro TRACE LAB 25261-3(LOINC) Squamous #/area UrnS LPF 0-5 LAB 21843-0(LOINC) Renal Epi Cells #/area UrnS HPF NONE SEEN LAB TRANS(LOINC) TRANSITIONAL EPITHEL NONE SEEN LAB 51154-2(LOINC) Coarse Gran Casts #/area UrnS LPF NONE SEEN LAB 5789-3(LOINC) Fatty Casts #/area UrnS LPF NONE SEEN LAB 04972-8(LOINC) Fine Gran Casts #/area UrnS LPF NONE SEEN LAB 5796-8(LOINC) Hyaline Casts #/area UrnS LPF 0-8 LAB 5807-3(LOINC) RBC Casts #/area UrnS LPF NONE SEEN LAB GRAN(LOINC) GRAN LAB 62390-1(LOINC) Waxy Casts UrnS Ql Micro NONE SEEN LAB 5820-6(LOINC) WBC Casts #/area UrnS LPF NONE SEEN LAB 5766-1(LOINC) Amm Urate Cry UrnS Ql Micro NONE SEEN LAB 30606-6(LOINC) Amorph Phos Cry UrnS Ql Micro NONE SEEN LAB 8246-1(LOINC) Amorph Sed UrnS Ql Micro NONE SEEN LAB 5773-7(LOINC) Ca Carbonate Cry UrnS Ql Micro NONE SEEN LAB 5774-5(LOINC) CaOx Cry UrnS Ql Micro FEW LAB 5775-2(LOINC) Ca Phos Cry UrnS Ql Micro MODERATE Abnormal NONE SEEN LAB 5777-8(LOINC) Cholest Cry UrnS Ql Micro NONE SEEN LAB 97274-3(LOINC) Cystine Cry #/area UrnS HPF NONE SEEN LAB 5795-0(LOINC) Hippurate Cry UrnS Ql Micro NONE SEEN LAB 5798-4(LOINC) Leucine Cry UrnS Ql Micro NONE SEEN LAB 664-3(LOINC) Gram Stn XXX NONE SEEN LAB 12251-5(LOINC) Starch Granules UrnS Ql Micro NONE SEEN LAB 5812-3(LOINC) Sulfonamide cry UrnS Ql Micro NONE SEEN LAB 5814-9(LOINC) Tri-Phos Cry UrnS Ql Micro NONE SEEN LAB 5815-6(LOINC) Tyrosine Cry UrnS Ql Micro NONE SEEN LAB 5817-2(LOINC) Urate Cry UrnS Ql Micro NONE SEEN LAB 51317-6(LOINC) Yeast Budding #/area UrnS HPF NONE SEEN LAB 63093-6(LOINC) Yeast pseudohyphae UrnS Ql Micro NONE SEEN Performed By: #### UAMR #### [facility] [address] [place], [place] [address] Byproducts Pump Operator - Melva LAWRENCE [id number] Performed for [facility] [address] [place], [place] [address] CBC WITH DIFFERENTIAL Collected: 11/30/2024 12:49 PM Status: F Source: [facility] TYPE CODE TESTS RESULT OUT OF RANGE [...] MCHC RBC Auto-mCnc 34.7 32.0-36.0 g/dL LAB 65730-6(LOINC) RDW RBC Auto 41.4 36.4-46.3 fL LAB 777-3(LOINC) Platelet # Bld Auto 255 130-400 10E3/uL LAB 35780-3(LOINC) PMV Bld Auto 9.8 9.0-13.0 fL LAB 770-8(LOINC) Neutrophils/leuk NFr Bld Auto 49.5 Low 50.0-70.0 % LAB 736-9(LOINC) Lymphocytes NFr Bld Auto 39.6 20.0-40.0 % LAB 5905-5(LOINC) Monocytes NFr Bld Auto 7.8 <=8.0 % LAB 713-8(LOINC) Eosinophil NFr Bld Auto 1.9 <=10.0 % LAB 706-2(LOINC) Basophils NFr Bld Auto 0.9 <=2.0 % LAB 12960-2(LOINC) Imm Granulocytes/darío k NFr Bld Auto 0.30 <=1.50 % LAB 751-8(LOINC) Neutrophils # Bld Auto 3.41 1.40-6.50 10E3/uL LAB 731-0(LOINC) Lymphocytes # Bld Auto 2.73 1.20-3.40 10E3/uL LAB 742-7(LOINC) Monocytes # Bld Auto 0.54 0.10-0.60 10E3/uL LAB 711-2(LOINC) Eosinophil # Bld Auto 0.13 <=0.70 10E3/uL LAB 704-7(LOINC) Basophils # Bld Auto 0.06 <=0.70 10E3/uL LAB 83190-2(LOINC) Imm Granulocytes # Bld Auto 0.02 <=0.10 10E3/uL LAB 771-6([facility]) nRBC # Bld Auto 0.00 <=0.10 10E 3/uL Performed By: #### 53150-9 # ### [facility] [address] [place] [address] Byproducts Pump Operator - Melva LAWRENCE [id number] BASIC METABOLIC PANEL Collected: 2024 12:49 PM Status: F Source: [facility] TYPE CODE TESTS RESULT OUT OF RANGE REFERENCE UNITS LAB 2951-2(INC) Sodium SerPl-sCnc 142 136-145 mmol/L LAB 2823-3(LOINC) Potassium SerPl-sCnc 4.4 3.5-5.1 mmol/L LAB 2075-0(LOINC) Chloride SerPl-sCnc 108 High 98-107 mmol/L LAB 2028-9(LOINC) CO2 SerPl-sCnc 24 21-32 mmol/L LAB 3094-0(LOINC) BUN SerPl-mCnc 15 7-17 mg/dL LAB 2160-0(LOINC) Creat SerPl-mCnc 0.81 0.51-0.95 mg/dL LAB 44967-0(LOINC) GFR/BSA.pred SerPl MDRD-ArVRat >60 >=60 mL/min LAB 2345-7(LOINC) Glucose SerPl-mCnc 88 74-106 mg/dL LAB 70847-3(LOINC) Calcium SerPl-mCnc 9.1 8.5-10.1 mg/dL LAB 03002-1(LOINC) Anion Gap3 SerPl-sCnc 10.0 <=15.0 mmol/L LAB [...] or without kidney damage.~ Performed By: #### 48467-5 # ### [facility] [address] [place] [address] Byproducts Pump Operator - Melva LAWRENCE [id number] CHEST PA Observed: 11/30/2024 7:09 AM Status: F Source: [facility] PROCEDURE: CHEST PA, 12/01/19 7:09 AM EDT [...] Observed: 2024 11:24 AM Status: F Source: [facility] EXAM: MRI KNEE WO CONTRAST L T [...] Observed: 07/17/2024 8:00 AM Status: F Source: [facility] PROCEDURE: PATELLA LEFT, 06/25 8:00 AM EST [...] NAME / CODE REACTION SEVERITY SOURCE Drug Class/774199515(SN OMED CT) NO KNOWN ALLERGIES [facility] Drug Allergy/488547356( SNOMED CT) No Known Allergies/898370(RXNOR M) [facility] Drug Allergy/081540170( SNOMED CT) No Known Drug Allergies/489774(RXNOR M) [facility] ENCOUNTERS ADMIT/DISCHARGE ACCOUNT NUMBER ADMITTING ENCOUNTER CLASS LOCATION SOURCE 02/21/2025 [id number] PERRI DE LEON Inpatient Encounter [facility] ng:TCURoom: 3211Bed: 01 [facility] 02/19/2025/02/21/[id number]~[id number] CYNDIE Goff Emergency [facility] - LiveBuilding: EMERGENCY DEPTRoom: EF1Bed: A [facility] 2025 [id number] ABNER SKIP LOAD DRIVER~[id number] 30, ABNER RENTERIA C Ambulatory [facility] - [facility]: OUTPATIENT [facility] 12/05/2024/12/06/[id number] WINIFRED PHAM MDNETH [facility] - LiveBuilding: AMBULATORY SURGERYRoom: KG53Gpj: A [facility] 07/24/2024/07/25/[id number]~[id number] [facility] PAYERS ENCOUNTER GUARANTOR PAYER SUBSCRIBER SOURCE 02/19/2025 INEZ ANG: [place], [place] [address]Eco: (HP) [facility]: [id number] leslie Date:[address] [place] [address]~ [address]: INEZ ANG: [id number] [place] [address] [facility] [address]: [place], [place] [address]Mjo: (HP) Primary Insurance:[facility] Number: [id number] leslie [facility] INEZ ANG: [id number] [place], [place] [address]Ijg: () Primary Insurance:[facility] Number: [id number] leslie Date:[address] [address]~[address]WP: INEZ ANG: [id number] [address] 07/24/2024 INEZ ANG: [id number] [place], [place] [address]Lgh: () [facility] Insurance:[facility]: [id number] leslie Date:[address] [address]~[address]WP: INEZ ANG: [id number] [address]
== END 2025-02-20 23:00 | disposition short-term general hospital (02) | DRG 446 ==
PROVIDERS: Internal Medicine Gastroenterology; Admitting Provider Family Medicine; Visit Provider Family Medicine
PROC: 0DJ08ZZ Inspection of Upper Intestinal Tract, Via Natural or Artificial Opening Endoscopic (ICD-10-PCS; CPT 43260; principal; 2025-02-20 16:50)
DX: K80.43 Calculus of bile duct with acute cholecystitis with obstruction (principal); E66.3 Overweight; I10 Essential (primary) hypertension; K31.89 Other diseases of stomach and duodenum; Z68.29 Body mass index [BMI] 29.0-29.9, adult; Z90.49 Acquired absence of other specified parts of digestive tract; Z79.899 Other long term (current) drug therapy; Z87.891 Personal history of nicotine dependence
CPT/HCPCS: 36415; 74330; 76000; 80053; 83735; 85025; 85610; 93005; A4216; J2405